=== PATIENT | male | born 1955 | race Caucasian/White ===

== ENCOUNTER 2021-03-14 18:56 | Inpatient (IN) | payer MEDICAID, SELFPAY ==
[2021-03-14] VITALS (9 sets, daily range): BP systolic 130–163; BP diastolic 80–103; PULSE 98–120; RESP 25–43; TEMP 37.3–39.1; O2SAT 90–97; BMI 23.1; BMI 23.3
--- NOTE | 2021-03-14 19:13 | EX.ED.DYSGE1 ---
HPI History of Present Illness Chief Complaint: Shortness of Breath Informant: EMS Narrative Narrative: 65-year-old male coming from home coming in by EMS with a chief complaint of fever and shaking. Patient states he has been sick for 4 days. When asked what symptoms he has been having he states I do not know. Nursing notes that he appears mottled. EMS noted that he was in the low 80s on room air at home. He can tell me that he lives with his but other than that he can provide no information PFSH PFSH Medical History Non-smoker Medical History unable to obtain unable to obtain Home Medications NK 03/14/21 [History Last Taken Unknown] Allergy/AdvReac Type Severity Reaction Status Date / Time No Known Allergies Allergy Verified 03/14/21 18:59 Surgical History unable to obtain unable to obtain Social History Smoking Status: Former smoker ROS ROS ED Review of Systems ROS Unobtainable: due to mental status EXAM Physical Exam Const Vital Signs: 03/14/21 19:00 03/14/21 19:06 03/14/21 19:10 Temperature 102.3 F H 102.3 F H Temperature Source Axillary Axillary Pulse Rate 120 H 120 H 120 H Respiratory Rate 26 H 35 H 35 H Respiratory Effort Short of Breath Respiratory Depth Shallow Respiratory Pattern Irregular Blood Pressure 136/103 H 136/103 H 136/103 H Blood Pressure Mean 114 114 114 Pulse Ox 95 95 95 Oxygen Delivery Method Non-Rebreather Non-Rebreather Non-Rebreather Oxygen Flow Rate (L/min) 15 03/14/21 19:52 03/14/21 20:00 03/14/21 20:06 Temperature 102.3 F H Temperature Source Axillary Pulse Rate 115 H 115 H Respiratory Rate 25 H 25 H Respiratory Effort Respiratory Depth Respiratory Pattern Blood Pressure 146/91 H 146/91 H Blood Pressure Mean 109 109 Pulse Ox 94 94 94 Oxygen Delivery Method Non-Rebreather Non-Rebreather Non-Rebreather Oxygen Flow Rate (L/min) 15 15 15 03/14/21 21:28 Temperature Temperature Source Pulse Rate 106 H Respiratory Rate 32 H Respiratory Effort Respiratory Depth Respiratory Pattern Blood Pressure 163/95 H Blood Pressure Mean 117 Pulse Ox 97 Oxygen Delivery Method Non-Rebreather Oxygen Flow Rate (L/min) 15 Positive well nourished and well developed General Appearance ED: well developed HEENT Reports normocephalic, head/scalp atraumatic, TM's clear and moist mucous membranes Negative for trauma Tympanic Membrane ED: Yes TM's clear Eyes PERRL and EOMs intact bilaterally Neck no lymphadenopathy, supple and no JVD Resp normal respiratory effort and clear to auscultation bilaterally Cardio regular rate and no murmurs Rate: tachycardic GI normal to inspection, nondistended, normoactive bowel sounds and non-tender Palpation: soft Back/Spine no CVA tenderness and normal ROM Extremity normal to inspection General Extremety ED: Negative for edema General Extremity: Negative for edema Neuro CN's II-XII intact bilaterally Sensorium / Orientation: alert Motor Exam: strength 5/5 throughout Psych Mood & Affect: depressed and tearful Skin no wounds Skin Narrative: Skin appears mottled MDM MDM MDM Narrative Medical decision making narrative: White count 6.4. Fibrinogen greater than 900 D-dimer 4.51. C-reactive protein 110 troponin I 20. LDH 691. Creatinine 1.77 with a BUN of 32. Lactic acid is 3.4. My interpretation of the chest x-ray is bilateral infiltrates. His rapid Covid was negative but his labs and his presentation and his CTA of his chest is very consistent with COVID-19. Patient is currently on a nonrebreather mask and we will be transitioning to air Vo when he goes to the floor. The patient will also receive a dose of Decadron. He wishes to speak with his regarding CODE STATUS before deciding on that. Lab Data Attestation: I reviewed the patient's lab results. Labs: Laboratory Results - last 24 hr 03/14/21 03/14/21 03/14/21 19:16 19:16 19:16 WBC 6.4 RBC 5.69 Hgb 16.9 H Hct 53.5 MCV 94.0 MCH 29.7 MCHC 31.6 L RDW Std Deviation 45.7 H RDW Coeff of Nito 13.2 Plt Count 399 MPV 11.0 Immature Gran % (Auto) 1.100 H Neut % (Auto) 77.8 H Lymph % (Auto) 18.6 L Cowley % (Auto) 2.2 Eos % (Auto) 0.0 Baso % (Auto) 0.3 Absolute Neuts (auto) 4.9 Absolute Lymphs (auto) 1.18 Nucleated RBC % 0 Differential Comment SCANNED Fibrinogen > 900 H D-Dimer Quant (PE/DVT) 4.51 H* Sodium 143 Potassium 3.9 Chloride 103 Carbon Dioxide 30.0 Anion Gap 10 BUN 32 H Creatinine 1.77 H Estim Creat Clear Calc 39.94 Est GFR (MDRD) Af Amer 50 L Est GFR (MDRD) Non-Af 41 L BUN/Creatinine Ratio 18.1 Glucose 140 H Lactic Acid Calcium 9.5 Total Bilirubin 0.80 AST 58 H ALT 55 Alkaline Phosphatase 53 Lactate Dehydrogenase 691 H Total Creatine Kinase 200 Troponin I High Sens 120 H C-React Prot Ext Range 110.00 H B-Natriuretic Peptide Total Protein 8.8 H Albumin 2.3 L Globulin 6.5 H Albumin/Globulin Ratio 0.4 L Procalcitonin 03/14/21 03/14/21 03/14/21 19:16 19:16 19:16 WBC RBC Hgb Hct MCV MCH MCHC RDW Std Deviation RDW Coeff of Nito Plt Count MPV Immature Gran % (Auto) Neut % (Auto) Lymph % (Auto) Cowley % (Auto) Eos % (Auto) Baso % (Auto) Absolute Neuts (auto) Absolute Lymphs (auto) Nucleated RBC % Differential Comment Fibrinogen D-Dimer Quant (PE/DVT) Sodium Potassium Chloride Carbon Dioxide Anion Gap BUN Creatinine Estim Creat Clear Calc Est GFR (MDRD) Af Amer Est GFR (MDRD) Non-Af BUN/Creatinine Ratio Glucose Lactic Acid 3.4 H* Calcium Total Bilirubin AST ALT Alkaline Phosphatase Lactate Dehydrogenase Total Creatine Kinase Troponin I High Sens C-React Prot Ext Range B-Natriuretic Peptide 57.8 Total Protein Albumin Globulin Albumin/Globulin Ratio Procalcitonin 0.40 H Radiography Diagnostic Testing: Clinical Impression(s) from Imaging Studies Chest X-Ray 03/14/21 20:10 IMPRESSION: Bilateral pneumonia. Electronically Signed: Mihai Ross MD at 20:30 EST , Service support , Chest CTA 03/14/21 20:27 IMPRESSION: 1. No demonstrated pulmonary embolism or arterial dissection. 2. There is bilateral pneumonia. 3. There are compression deformities of the spine. These are age-indeterminate. MRI could further evaluate if of concern. 4. Gallstones. Electronically Signed: Mihai Ross MD at 21:40 EST , Service support , EKG Initial EKG: Attestation: I personally reviewed and interpreted this EKG as follows: Comments: Sinus tachycardia with a ventricular rate of 110 bpm. P PVC noted Discharge Plan Dx/Rx/DC Orders Clinical Impression: COVID-19, Acute hypoxemic respiratory failure due to COVID-19 Disposition Disposition: Acute Care Hospital [facility]
--- NOTE | 2021-03-14 19:50 | EKG12_ITS ---
Test Reason : SOB Blood Pressure : / mmHG Vent. Rate : 112 BPM Atrial Rate : 112 BPM P-R Int : 124 ms QRS Dur : 078 ms QT Int : 330 ms P-R-T Axes : 048 034 030 degrees QTc Int : 450 ms Sinus tachycardia with occasional Premature ventricular complexes Septal infarct , age undetermined Abnormal ECG Confirmed by RENE BROOKS, BRITTANIE ([id number]), photography editor VALERIE ROMAN ([id number]) on 03/17/2021 9:52:38 AM Referred By: Confirmed By:BRITTANIE LÓPEZ MD
[2021-03-14 20:01] LABS: Absolute Lymphocyte Count 1.18 X10^3/uL (0.83-4.51); Absolute Neutrophil Count 4.9 X10^3/uL (2.0-7.7); Basophil# 0.02 X10^3/uL; Basophil% 0.3 % (0-1); Hematocrit 53.5 % (40-54); Hemoglobin 16.9 g/dL (13.0-16.5); Lymphocyte # 1.18 X10^3/ul (0.83-4.51); Lymphocyte % 18.6 % (19-41); Mean Corp Hgb Conc 31.6 g/dL (32-36); Mean Corpuscular Hgb 29.7 pg (27.0-32.0); Monocyte# 0.14 X10^3/uL; Monocyte% 2.2 % (0-10); NRBC Flagged by Analyzer 0 % (0-5); Neutrophil # 4.94 X10^3/uL (2.7-7.7); Neutrophil % 77.8 % (47-70); POSITIVE MORPHOLOGY YES; Platelet Count 399 K/mm3 (150-450); RBC Distribution Width CV 13.2 % (11.6-14.6); RBC Distribution Width SD 45.7 fl (35.1-43.9); Red Blood Count 5.69 M/mm3 (4.6-6.2); White Blood Count 6.4 K/mm3 (4.4-11.0)
--- NOTE | 2021-03-14 20:10 | RAD_ITS ---
STUDY: X-RAY CHEST REASON FOR EXAM: Male, 65 years old. CHEST PAIN coughTechnologist Notes SEVERE SOB. FEVER. BEST IMAGE POSSIBLE DUE TO PATIENT AND CONDITION. TECHNIQUE: XR Chest 1 View COMPARISON: None FINDINGS: There is no demonstrated pleural abnormality. There is bilateral infiltrate. Normal size heart. Normal mediastinum and xochilt. Normal visualized pulmonary arteries. There is atherosclerotic calcification of the aortic arch with tortuosity. There are diffuse degenerative changes of the visualized thoracic spine. There is degenerative osteoarthritis of the bilateral shoulders. There is no demonstrated abnormality of the visualized soft tissue structures of the upper abdomen. RAD/Chest 1 View (Portable) IMPRESSION: Bilateral pneumonia. Electronically Signed: Mihai Ross MD at 20:30 EST , Service support ,
[2021-03-14 20:15] LABS: Differential Indicated SCAN CRITERIA MET
[2021-03-14 20:21] LABS: ALB/GLOB Ratio 0.4 RATIO (0.9-2.4); AST(SGOT) 58 U/L (15-37); Alanine Aminotransfer ALT/SGPT 55 U/L (16-61); Albumin, Serum 2.3 g/dL (3.2-5.0); Alkaline Phosphatase 53 U/L (45-117); Anion Gap 10 (5-15); BUN 32 mg/dL (7-18); BUN/Creat Ratio 18.1 RATIO (10-20); CPK Total, Creatine Kinase 200 U/L (39-308); Calcium,Total 9.5 mg/dL (8.5-10.1); Chloride 103 mmol/L (98-107); Creatinine, Serum 1.77 mg/dL (0.70-1.30); EST Glomerular Filtration Rate 41 mL/min (>60); Est Glom Filt Rate - Afr Amer 50 mL/min (>60); Estimated Creatinine Clearance 39.94 ml/min; Globulin 6.5 g/dL (2.2-4.2); Glucose 140 mg/dL (74-106); LDH 691 U/L (87-241); Potassium 3.9 mmol/L (3.5-5.1); Protein, Total 8.8 g/dL (6.4-8.2); Sodium Level 143 mmol/L (136-145); Troponin-I HS 120 pg/mL (3.0-78.0)
[2021-03-14 20:24] LABS: Lactic Acid 3.4 mmol/L (0.4-1.9)
--- NOTE | 2021-03-14 20:27 | CT_ITS ---
EXAM: CT ANGIOGRAPHY CHEST WITHOUT AND WITH INTRAVENOUS CONTRAST CLINICAL INDICATION: pulmonary embolism TECHNIQUE: Helically acquired angiography images were obtained of the chest without and with intravenous contrast. This CT exam was performed using one or more of the following dose reduction techniques: automated exposure control, adjustment of the mA and/or kV according to patient size, and/or use of iterative reconstruction technique. This report was created using [employer] report generation technology. MIP reconstructed images were created and reviewed. CONTRAST: IV 100mL [id number] COMPARISON: None. FINDINGS: PULMONARY ARTERIES: No demonstrated pulmonary embolism or arterial dissection. AORTA: There is atherosclerotic calcification of the aortic arch with tortuosity and elongation of the aortic arch and descending thoracic aorta. Normal in caliber. No evidence of dissection. GREAT VESSELS OF AORTIC ARCH: Unremarkable. Normal in caliber. No evidence of dissection. LUNGS AND PLEURAL SPACES: There is bilateral pneumonia. No mass. No pleural effusion or thickening. HEART: There are calcifications of the coronary arteries. No pericardial effusion. No signs of right heart strain, ratio of right ventricle to left ventricle measures less than 1. MEDIASTINUM: There is a hiatal hernia. No mediastinal or hilar adenopathy. Esophagus is unremarkable. THYROID: Unremarkable. No thyroid lesions. BONES/JOINTS: There are degenerative findings of the thoracic spine. Age indeterminate compression deformity of the superior thoracic spine. No suspicious lytic or blastic abnormality. GALLBLADDER AND BILE DUCTS: Gallstones. CT/CTA Chest W/WO Contrast IMPRESSION: 1. No demonstrated pulmonary embolism or arterial dissection. 2. There is bilateral pneumonia. 3. There are compression deformities of the spine. These are age-indeterminate. MRI could further evaluate if of concern. 4. Gallstones. Electronically Signed: Mihai Ross MD at 21:40 EST , Service support ,
[2021-03-14] MEDS: Acetaminophen 500 MG Tablet 1000 MG PO (20:34)
[2021-03-14 20:37] LABS: Fibrinogen > 900 mg/dl (203-444)
[2021-03-14 20:48] LABS: Differential Comment SCANNED
[2021-03-14 20:51] LABS: D-Dimer Quantitative (DVT/PE) 4.51 FEU/ug/m (0.27-0.49)
[2021-03-14 20:59] LABS: BNP,B-Type NATRIURETIC PEPTIDE 57.8 pg/mL (0-100)
--- NOTE | 2021-03-14 22:07 | PCM.HP.STD ---
HPI - General General Date of Admission: 03/14/21 HPI Narrative Patient is not forthcoming with information.Patient wanted to go home. However his does not want him to go back home since patient is sick. EMMY SERVIN, is a 65 M who denies any medical history and who presents to the emergency department with shortness of breath. He reported his shortness of breath started about a week. He denies a cough, fever, chills, nausea, vomiting and diarrhea. Indeed patient denies any other symptoms except to say that he has shortness of breath. [facility] Medical History Non-smoker Medical History unable to obtain Home Medications NK 03/14/21 [History Last Taken Unknown] Allergy/AdvReac Type Severity Reaction Status Date / Time No Known Allergies Allergy Verified 03/14/21 18:59 Family History Other Heart disease Surgical History no surgical history no surgical history Social History Smoking Status: Former smoker ROS ROS Narrative Pertinent positives and pertinent negatives as noted in HPI. All other systems were reviewed and are negative. Vital Signs Vital Signs Vital Signs: 03/14/21 19:00 03/14/21 19:06 03/14/21 19:10 Temperature 102.3 F H 102.3 F H Temperature Source Axillary Axillary Pulse Rate 120 H 120 H 120 H Respiratory Rate 26 H 35 H 35 H Respiratory Effort Short of Breath Respiratory Depth Shallow Respiratory Pattern Irregular Blood Pressure 136/103 H 136/103 H 136/103 H Blood Pressure Mean 114 114 114 Pulse Ox 95 95 95 Oxygen Delivery Method Non-Rebreather Non-Rebreather Non-Rebreather Oxygen Flow Rate (L/min) 15 03/14/21 19:52 03/14/21 20:00 03/14/21 20:06 Temperature 102.3 F H Temperature Source Axillary Pulse Rate 115 H 115 H Respiratory Rate 25 H 25 H Respiratory Effort Respiratory Depth Respiratory Pattern Blood Pressure 146/91 H 146/91 H Blood Pressure Mean 109 109 Pulse Ox 94 94 94 Oxygen Delivery Method Non-Rebreather Non-Rebreather Non-Rebreather Oxygen Flow Rate (L/min) 15 15 15 03/14/21 21:28 Temperature Temperature Source Pulse Rate 106 H Respiratory Rate 32 H Respiratory Effort Respiratory Depth Respiratory Pattern Blood Pressure 163/95 H Blood Pressure Mean 117 Pulse Ox 97 Oxygen Delivery Method Non-Rebreather Oxygen Flow Rate (L/min) 15 Weight Weight: 67.132 kg Body Mass Index (BMI) 23.1 Physical Exam Narrative Physical exam: General: Well-nourished, well-developed. Head: Normocephalic, atraumatic, no tenderness Eyes: PERRLA, EOMI ENT, no trauma, no rhinorrhea Neck: Nontender, full range of motion, no spinal tenderness, deformities, step-off CVS: Tachycardia . S1-S2 present. No murmur, gallop or rub. Respiratory : Tachypnea , chest wall nontender, no wheezing Abdomen: Soft, nontender, nondistended, normal bowel sounds, no masses : Deferred Back: Nontender, no CVA tenderness, no midline spinal tenderness, deformities, step-offs Extremities: Nontender full range of motion, no trauma Skin: Normal color, no trauma, abrasions Neuro: Alert, oriented, cranial nerves II through XII grossly intact. Psychiatry: Normal mood. Normal affect. Not depressed. Not anxious. Results Lab / Micro Data Result Diagrams: 03/14/21 19:16 03/14/21 19:16 Labs: Laboratory Results - last 24 hr 03/14/21 19:16: WBC 6.4, RBC 5.69, Hgb 16.9 H, Hct 53.5, MCV 94.0, MCH 29.7, MCHC 31.6 L, RDW Std Deviation 45.7 H, RDW Coeff of Nito 13.2, Plt Count 399, MPV 11.0, Immature Gran % (Auto) 1.100 H, Neut % (Auto) 77.8 H, Lymph % (Auto) 18.6 L, Blair % (Auto) 2.2, Eos % (Auto) 0.0, Baso % (Auto) 0.3, Absolute Neuts (auto) 4.9, Absolute Lymphs (auto) 1.18, Nucleated RBC % 0, Differential Comment SCANNED 03/14/21 19:16: Fibrinogen > 900 H, D-Dimer Quant (PE/DVT) 4.51 H* 03/14/21 19:16: Sodium 143, Potassium 3.9, Chloride 103, Carbon Dioxide 30.0, Anion Gap 10, BUN 32 H, Creatinine 1.77 H, Estim Creat Clear Calc 39.94, Est GFR (MDRD) Af Amer 50 L, Est GFR (MDRD) Non-Af 41 L, BUN/Creatinine Ratio 18.1, Glucose 140 H, Calcium 9.5, Total Bilirubin 0.80, AST 58 H, ALT 55, Alkaline Phosphatase 53, Lactate Dehydrogenase 691 H, Total Creatine Kinase 200, Troponin I High Sens 120 H, C-React Prot Ext Range 110.00 H, Total Protein 8.8 H, Albumin 2.3 L, Globulin 6.5 H, Albumin/Globulin Ratio 0.4 L 03/14/21 19:16: Lactic Acid 3.4 H* 03/14/21 19:16: B-Natriuretic Peptide 57.8 03/14/21 19:16: Procalcitonin 0.40 H Micro: Microbiology 03/14/21 20:10 Mucosa - Nose Influenza Types A,B Direct FA (RAMONITA) - Final 03/14/21 19:49 Nasal Secretion SARS-CoV-2 Antigen (Rapid) - Final Radiology Impression Chest X-Ray 03/14/21 20:10 IMPRESSION: Bilateral pneumonia. Electronically Signed: Mihai Ross MD at 20:30 EST , Service support , Chest CTA 03/14/21 20:27 IMPRESSION: 1. No demonstrated pulmonary embolism or arterial dissection. 2. There is bilateral pneumonia. 3. There are compression deformities of the spine. These are age-indeterminate. MRI could further evaluate if of concern. 4. Gallstones. Electronically Signed: Mihai Ross MD at 21:40 EST , Service support , Assessment & Plan Assessment/Plan (1) Respiratory failure: QUALIFIERS: Chronicity: acute Respiratory failure complication: hypoxia Qualified Code(s): J96.01 - Acute respiratory failure with hypoxia PLAN: Acute hypoxemic respiratory failure Patient with tachycardia; tachypnea; and requiring nonrebreather mask and airvo Chest x-ray interpreted by myself showed bilateral opacities and agree radiologist interpretation. Chest CTA with bilateral opacities and if no pulmonary embolism or acute dissection. Labs reviewed showed normal white counts but with bandemia of 1.1%; neutrophilia of 77.8% and lymphopenia of 18.6%. Lactic acid 3.4 likely from hypoxemia, trend. At the time of history taking patient was saying no to every question. He does not really want to be at the hospital except that his think that he should be at the hospital. Review of emergent department notes showed that patient has also had fever and shaking. Reportedly he was mottled at the ED and his oxygen saturation was in the low 80s on room air at home. Reportedly with given oxygen at the ED his color improved. Required nonrebreather mask at emergency department and then placed on airvo at the [facility]. Initial rapid antigen was negative. ED doctor ordered PCR Covid that also returned negative. Started on Decadron at emergency department and continued. Procalcitonin returned at 0.40 which is indeterminate for bacterial infection. Will start patient on ceftriaxone and azithromycin. We will get a strep pneumonia antigen, Legionella urine antigen and mycoplasma antibodies. Denies any cough to get sputum culture. We will get blood cultures. Will start patient ceftriaxone and azithromycin. Influenza screen was negative. Will check RSV. Will consult stress analyst. Elevated creatinine and elevated BUN Creatinine on presentation was 1.77. BUN on presentation was 32. BUN over creatinine is 18.1. No previous BMP in hospital system or in the community system to compare with. Cautious use of IV fluids in the setting of pulmonary disease. Gentle IV hydration 50 mL/h ordered. Urine electrolytes ordered. Trend CMP DVT prophylaxis: Subcutaneous Lovenox ordered. Charges/Coding Visit Charges Inpatient E&M: 56337 Init Hosp L3
[2021-03-14] MEDS: dexAMETHasone 4 MG Tablet 6 MG PO (22:20)
[2021-03-14 23:57] LABS: Reflex Lactate? Y
[2021-03-15] VITALS (25 sets, daily range): BP systolic 118–158; BP diastolic 71–108; PULSE 80–113; RESP 18–36; TEMP 35.3–36.2; O2SAT 92–99
--- NOTE | 2021-03-15 00:01 | PCS.PANDOC ---
PANDEMIC DOCUMENTATION INITIATED: Date: 10/24/2020 Time: 190
[2021-03-15 01:02] LABS: Lactic Acid 2.1 mmol/L (0.4-1.9)
[2021-03-15 02:13] LABS: Absolute Lymphocyte Count 0.45 X10^3/uL (0.83-4.51); Absolute Neutrophil Count 5.9 X10^3/uL (2.0-7.7); Basophil# 0.01 X10^3/uL; Basophil% 0.2 % (0-1); Hematocrit 47.8 % (40-54); Hemoglobin 15.5 g/dL (13.0-16.5); Lymphocyte # 0.45 X10^3/ul (0.83-4.51); Lymphocyte % 6.9 % (19-41); Mean Corp Hgb Conc 32.4 g/dL (32-36); Mean Corpuscular Hgb 30.6 pg (27.0-32.0); Mean Corpuscular Volume 94.3 fL (80-94); Mean Platelet Vol. 10.1 fl (6.2-12.0); Monocyte# 0.11 X10^3/uL; Monocyte% 1.7 % (0-10); NRBC Flagged by Analyzer 0 % (0-5); Neutrophil # 5.92 X10^3/uL (2.7-7.7); Neutrophil % 90.3 % (47-70); POSITIVE DIFFERENTIAL YES; Platelet Count 387 K/mm3 (150-450); RBC Distribution Width CV 13.2 % (11.6-14.6); RBC Distribution Width SD 45.8 fl (35.1-43.9); Red Blood Count 5.07 M/mm3 (4.6-6.2); White Blood Count 6.6 K/mm3 (4.4-11.0)
[2021-03-15] MEDS: 0.9% Normal Saline 1,000 ML 50 ML IV ×2 (02:16→11:01)
[2021-03-15] MEDS: Ceftriaxone 1 GM/50 ML BAG IV ×2 (02:16→23:18)
[2021-03-15 02:22] LABS: Differential Indicated SCAN CRITERIA MET
[2021-03-15 02:48] LABS: ALB/GLOB Ratio 0.4 RATIO (0.9-2.4); AST(SGOT) 44 U/L (15-37); Alanine Aminotransfer ALT/SGPT 46 U/L (16-61); Alkaline Phosphatase 50 U/L (45-117); Anion Gap 12 (5-15); BUN 32 mg/dL (7-18); BUN/Creat Ratio 20.9 RATIO (10-20); Calcium,Total 8.7 mg/dL (8.5-10.1); Chloride 107 mmol/L (98-107); Creatinine, Serum 1.53 mg/dL (0.70-1.30); EST Glomerular Filtration Rate 49 mL/min (>60); Est Glom Filt Rate - Afr Amer 59 mL/min (>60); Globulin 5.7 g/dL (2.2-4.2); Glucose 290 mg/dL (74-106); Potassium 3.3 mmol/L (3.5-5.1); Protein, Total 7.7 g/dL (6.4-8.2); Sodium Level 142 mmol/L (136-145)
[2021-03-15 02:50] LABS: Urine Sodium 13 mmol/L (Not Establ.)
[2021-03-15 02:51] LABS: Differential Comment SCANNED
[2021-03-15 04:01] LABS: Erythrocyte Sedimentation Rate 102 mm/hr (0-20)
[2021-03-15] MEDS: Potassium Chloride 10mEq/100mL 10 MEQ/100 ML IV.SOLN. 100 MEQ IV BOLUS ×4 (04:33→08:08)
[2021-03-15 04:44] LABS: Magnesium 3.4 mg/dL (1.6-2.6)
--- NOTE | 2021-03-15 04:48 | NURSING ---
Okay per pt to give updates to sister Crista.
[2021-03-15 05:40] LABS: Osmolality, Urine 822 mOsm/KG
[2021-03-15] MEDS: Enoxaparin 30 MG/0.3 ML Syringe SC ×2 (08:11→23:17)
[2021-03-15] MEDS: dexAMETHasone 4 MG Tablet 6 MG PO (08:11)
--- NOTE | 2021-03-15 10:45 | CASEMGMT ---
DIVYA PENNY assessment: Face to Face with patient for initial transition planning/care coordination assessment. DIVYA PENNY introduced self and role at [facility], pt voices understanding and consents to assessment. Pt is sitting up in bed on airvo in no distress. Pt is A/Ox4 and answers all questions appropriately. Pt states is not vaccinated and states previously had symptoms but no longer is symptomatic. Pt states no concerns getting resources/groceries. Care providers, pharmacy, and demographics verified. Presentation: Pt c/o severe SOB/fever Admitting dx: Acute hypoxemic resp failure PCP: Pt states does not currently have a [id number] list provided Specialists: None currently Preferred Pharmacy: [facility] Insurance: [employer] community plan Prescription Benefit: [employer] community plan Living Will/HPOA: Pt states does not have LW/HPOA but would like AD info. AD info provided. LNOK: Lesli Massey, bg Living Arrangements: Pt lives with in 2 story home with basement and states no concerns at home. Pt is independent with ADL's. Transportation: Pt states that he and his walk everywhere they need to go and states no concerns. DME/HHC: Pt has a cane at home and states no need for any further DME. Pt states no preference for DME company, if qualifies for home oxygen at discharge. Pt states no hx of HHC or SNF. Pt states no concerns with going home at time of discharge. Pt is retired. Pt states does not smoke cigarettes but does drink 1-2 beers every other day. Pt states no further concerns/needs. CM to follow for any further discharge planning/needs. Advised pt to ask for CM if any further questions/concerns/needs arise, voices understanding. Pt Goal: Home Plan: [place] DIVYA PENNY
--- NOTE | 2021-03-15 16:10 | PCM.PN.HOSP ---
Subjective Subjective Patient states that he has been ill for a little over 2 weeks now. He never tested positive for Covid although he has had issues during the entire span. He has not been vaccinated and states he would not like to do so. He was initiated on Decadron his CAT scan findings are concerning for an atypical or viral pneumonia. He unfortunately has been requiring increased amount of oxygen and overnight was converted from 15 L to air Vo. Objective Data Objective Data Vital Signs: Vital Signs Temp Pulse Resp BP Pulse Ox 97.2 F L 104 H 22 H 143/95 H 94 03/15/21 16:04 03/15/21 16:04 03/15/21 16:04 03/15/21 16:04 03/15/21 16:04 Oxygen Flow Rate (L/min) 55 Oxygen Delivery Method Airvo Weight: 65.5 kg Body Mass Index (BMI) 23.3 Intake & Output: Intake and Output for Last 24 Hours 03/13/21 03/14/21 03/15/21 23:59 23:59 23:59 Intake Total 500 / 500 2596.67 / 2596.67 Output Total 900 / 900 Balance 500 / 500 1696.67 / 1696.67 Lab / Micro Data Result Diagrams: 03/15/21 01:45 03/15/21 01:45 Labs: Laboratory Results - last 24 hr 03/14/21 19:16: WBC 6.4, RBC 5.69, Hgb 16.9 H, Hct 53.5, MCV 94.0, MCH 29.7, MCHC 31.6 L, RDW Std Deviation 45.7 H, RDW Coeff of Nito 13.2, Plt Count 399, MPV 11.0, Immature Gran % (Auto) 1.100 H, Neut % (Auto) 77.8 H, Lymph % (Auto) 18.6 L, Brantley % (Auto) 2.2, Eos % (Auto) 0.0, Baso % (Auto) 0.3, Absolute Neuts (auto) 4.9, Absolute Lymphs (auto) 1.18, Nucleated RBC % 0, Differential Comment SCANNED 03/14/21 19:16: Fibrinogen > 900 H, D-Dimer Quant (PE/DVT) 4.51 H* 03/14/21 19:16: Sodium 143, Potassium 3.9, Chloride 103, Carbon Dioxide 30.0, Anion Gap 10, BUN 32 H, Creatinine 1.77 H, Estim Creat Clear Calc 39.94, Est GFR (MDRD) Af Amer 50 L, Est GFR (MDRD) Non-Af 41 L, BUN/Creatinine Ratio 18.1, Glucose 140 H, Calcium 9.5, Total Bilirubin 0.80, AST 58 H, ALT 55, Alkaline Phosphatase 53, Lactate Dehydrogenase 691 H, Total Creatine Kinase 200, Troponin I High Sens 120 H, C-React Prot Ext Range 110.00 H, Total Protein 8.8 H, Albumin 2.3 L, Globulin 6.5 H, Albumin/Globulin Ratio 0.4 L 03/14/21 19:16: Lactic Acid 3.4 H* 03/14/21 19:16: B-Natriuretic Peptide 57.8 03/14/21 19:16: Procalcitonin 0.40 H 03/14/21 19:16: C-React Prot Ext Range 107.00 H 03/14/21 21:26: COVID-19 (VASILE) Not Detected 03/15/21 00:26: Lactic Acid 2.1 H* 03/15/21 01:41: Magnesium 3.4 H 03/15/21 01:45: ESR 102 H 03/15/21 01:45: WBC 6.6, RBC 5.07, Hgb 15.5, Hct 47.8, MCV 94.3 H, MCH 30.6, MCHC 32.4, RDW Std Deviation 45.8 H, RDW Coeff of Nito 13.2, Plt Count 387, MPV 10.1, Immature Gran % (Auto) 0.900, Neut % (Auto) 90.3 H, Lymph % (Auto) 6.9 L, Brantley % (Auto) 1.7, Eos % (Auto) 0.0, Baso % (Auto) 0.2, Absolute Neuts (auto) 5.9, Absolute Lymphs (auto) 0.45 L, Nucleated RBC % 0, Differential Comment SCANNED 03/15/21 01:45: Sodium 142, Potassium 3.3 L, Chloride 107, Carbon Dioxide 23.0, Anion Gap 12, BUN 32 H, Creatinine 1.53 H, Estim Creat Clear Calc 44.60, Est GFR (MDRD) Af Amer 59 L, Est GFR (MDRD) Non-Af 49 L, BUN/Creatinine Ratio 20.9 H, Glucose 290 H, Calcium 8.7, Total Bilirubin 0.80, AST 44 H, ALT 46, Alkaline Phosphatase 50, Total Protein 7.7, Albumin 2.0 L, Globulin 5.7 H, Albumin/Globulin Ratio 0.4 L 03/15/21 02:30: Urine Osmolality 822, Ur Random Sodium 13, Urine Creatinine 161.00 Micro: Microbiology 03/15/21 02:30 Urine, Clean Catch Legionella Antigen - Final 03/15/21 02:30 Urine, Clean Catch Streptococcus pneumoniae Antigen (M - Final 03/15/21 02:46 Mucosa - Nasopharyngeal Rapid RSV (DFA) - Final 03/14/21 20:10 Mucosa - Nose Influenza Types A,B Direct FA (RAMONITA) - Final 03/14/21 19:49 Nasal Secretion SARS-CoV-2 Antigen (Rapid) - Final Radiography Diagnostic Testing: Radiology Impression Chest X-Ray 03/14/21 20:10 IMPRESSION: Bilateral pneumonia. Electronically Signed: Mihai Ross MD at 20:30 EST , Service support , Chest CTA 03/14/21 20:27 IMPRESSION: 1. No demonstrated pulmonary embolism or arterial dissection. 2. There is bilateral pneumonia. 3. There are compression deformities of the spine. These are age-indeterminate. MRI could further evaluate if of concern. 4. Gallstones. Electronically Signed: Mihai Ross MD at 21:40 EST , Service support , Physical Exam Const alert and oriented x3 Constitutional Narrative: Ill but nontoxic-appearing upper middle-aged white male who appears older than stated age, sitting up in bed watching television, currently on air Vo, no significant dyspnea with conversation Exam Limitations: no limitations HEENT head/scalp atraumatic, moist oral mucous membranes and oropharynx normal HEENT Narrative: Dentition is fair, Mallampati is 2, no thrush Head and Scalp: normocephalic Eyes PERRL, EOMs intact bilaterally and conjunctivae normal Eyes Narrative: No scleral icterus Neck no lymphadenopathy, supple and no JVD Neck Narrative: Trachea midline, no thyroid enlargement Resp normal respiratory effort, no retractions, no use of accessory muscles and No clear to auscultation bilaterally Resp Narrative: Bilateral basilar crackles and clear but diminished apices Auscultation: crackles and rales; Negative for rhonchi or wheezes Cardio regular rhythm, S1 normal heart sound, S2 normal heart sound, no murmurs, no rub, no gallops, no clicks and no JVD Cardio Narrative: Mild tachycardia GI normal to inspection, nondistended, normoactive bowel sounds, soft to palpation, non-tender and non-distended Extremity no clubbing, cyanosis or edema Peripheral Pulses: Yes pulses 2+ throughout Skin no rashes or lesions noted, no wounds, skin turgor normal, no jaundice, no petechiae and no mottling Neuro oriented x3, moves all extremities, no focal motor deficits and no sensory deficits noted Neuro Narrative: Generalized weakness but no focal deficits Sensorium / Orientation: awake and alert Speech: speech normal Psych affect normal Assessment & Plan Assessment/Plan (1) Acute hypoxemic respiratory failure due to COVID-19: (2) Elevated d-dimer: (3) Hypokalemia: (4) CONNOR (acute kidney injury): (5) Lactic acidosis: (6) Elevated troponin I level: PLAN: Acute hypoxic respiratory failure -Etiology is undetermined at this time although CAT scan appears consistent with viral pneumonia -COVID-19 infection is highly suspected at this time -he has been symptomatic for over 14 days so it is therefore possible that he is negative with rapid and PCR testing -IgM and IgG antibodies are pending -Lab work is very suspicious for Covid infection as well with elevated fibrinogen/CRP/ESR/D-dimer/LDH -Continue supplemental oxygen -Patient is currently on air Vo at 55 L/min and an FiO2 of 73% with a pulse ox of 94 to 99% -Titrate as able/needed -Flu testing is negative -Blood cultures are pending -RSV is negative -Mycoplasma IgG and IgM is pending Strep pneumo and Legionella antigens are negative -Continue empiric antibiotics with ceftriaxone and azithromycin -Continue Decadron day 2 of 10 -Patient is out of the window for remdesivir -I-S and Acapella -Discontinue IV fluids -We will hold diuresis at this time given unknown baseline renal function -Consult infectious disease for baricitinib consideration -Pulmonary consult pending Elevated D-dimer -CTA chest negative for PE -Continue prophylactic dose Lovenox Hypokalemia -Oral potassium supplementation -Repeat BMP in a.m. -If remains low check magnesium level Elevated troponin -Mild elevation -Repeat troponin now -If remains elevated will obtain echocardiogram and further work-up -May be related to demand ischemia secondary to hypoxia Lactic acidosis -This is mild and improved -Suspect related to hypoxia CONNOR versus CKD -Baseline renal function is unknown -1.77 on presentation and currently 1.53 -Continue to monitor for stability but I do anticipate there is a chronic component to this Hyperglycemia -Markedly elevated blood sugars with a current glucose of 260 on fasting lab this morning -Add SSI and Accu-Cheks -Check hemoglobin A1c DVT prophylaxis -Continue Lovenox 30 mg twice daily CODE STATUS -DNR CCA with intubation as documented per discussion on admission Charges/Coding Visit Charges Inpatient E&M: 48946 Init Hosp L3
--- NOTE | 2021-03-15 16:28 | EX.PCM.CONCC ---
Assessment & Plan Assessment/Plan (1) Respiratory failure: QUALIFIERS: Chronicity: acute Respiratory failure complication: hypoxia Qualified Code(s): J96.01 - Acute respiratory failure with hypoxia (2) Lactic acidosis: (3) Elevated d-dimer: PLAN: RECOMMENDATIONS: 1. Continue Airvo. Wean supplemental oxygen as tolerated 2. Empiric antibiotics and Decadron 3. Consider intermittent diuretic therapy 4. Monitor for alcohol withdrawal and refeeding syndrome 5. Attempt to obtain old records to assess renal function 6. Cannot exclude the need for BiPAP rescue in the next 24 hours IMPRESSIONS: 1. Acute hypoxic respiratory failure Unclear etiology at this time. Patient was relatively belligerent when discussing COVID-19. Groundglass opacities are in a pattern consistent with COVID-19. However, other possible etiologies would include other atypical viral infections or congestive heart failure. Unfortunately, viral panels are not available at this time. Diuretics likely have to be avoided given patient's acute kidney injury. RSV was negative. Continue to wean supplemental oxygen as tolerated. Agree with Decadron therapy. Patient does have some emphysematous changes, but denied any smoking history to me. Patient did not have a PE to account for findings. CRP is significantly elevated. Patient is not reporting any medications, but immunotherapy can make a similar type of presentation on CT of the chest. 2. Acute versus chronic kidney disease Baseline creatinine is not available at this time. Patient was elevated at 1.77 on presentation and this has improved with supportive therapy. However, it is unclear if there is a chronic component. Patient appears to be relatively adverse to medical evaluation. 3. Hyperglycemia Clinical suspicion for undiagnosed diabetes mellitus as an etiology. Patient was appropriately placed on sliding scale and Accu-Cheks. Await hemoglobin A1c. 4. Poor historian/nonvaccinated status Complicates care, management, recovery and prognosis. Will attempt to obtain further information from family members if possible. HPI Consult Data Date of Consult: 03/15/21 HPI Narrative HPI Narrative: EMMY SERVIN is a 65 M, with past medical history listed below, who presents to [facility] on 03/14/2021 secondary to fever and shaking. Patient reportedly had been sick for weeks and presented because my told me to. EMS had noted that the patient was in the low 80s on room air so he was transferred to the ER for further evaluation. In the ER, patient was noted to be febrile at 102.3 ?F, tachycardic at 120 bpm and hypertensive. Patient was requiring a nonrebreather to maintain saturations. Laboratory work-up showed a white blood cell count of 6.4, hemoglobin of 16.9 and a platelet count of 399. D-dimer was elevated at 4.5, creatinine of 1.77 and a glucose of 140. Patient did have an elevated lactate dehydrogenase at 691 and a CRP at 110. Lactate was elevated at 3.4, but BNP was only 57.8. Procalcitonin was elevated. Chest x-ray was consistent with bilateral pneumonia. Of subsequent CTA of the chest showed no PE with bilateral pneumonia. The patient was then admitted to the PCU for further evaluation. Patient is a very poor historian. Patient had reported that he was having symptoms for several weeks of shortness of breath. Patient denied any cough, fever, chills, nausea or vomiting. Patient did state that he was having some shortness of breath. When asked about why he came to the hospital his only response was my made me come. When asked about COVID-19 and risks, patient stated that COVID-19 was not a real diagnosis. Patient also stated that he had not been vaccinated. Patient denies any history of lung issues in the past. Patient denied any smoking history. Patient did report that he drinks 2 beers per hour on a normal basis. Patient states that he tends to get a case of 30 beers every 2 to 3 days. Patient denies any history of issues with cessation of alcohol. Patient denies any illicit drug use. Patient is a very poor historian, but review of systems otherwise negative from a constitutional, HEENT, respiratory, cardiovascular, GI, genitourinary, musculoskeletal, skin, neurologic, psychiatric and hematologic system unless stated above. [facility] Medical History Non-smoker Medical History unable to obtain Home Medications NK 03/14/21 [History Last Taken Unknown] Allergy/AdvReac Type Severity Reaction Status Date / Time No Known Allergies Allergy Verified 03/14/21 18:59 Family History Other Heart disease Surgical History no surgical history Social History Smoking Status: Former smoker ROS ROS Narrative See HPI Physical Exam Const alert and oriented x3 Constitutional Narrative: On Airvo General Appearance: disheveled, ill appearing and appears older than stated age Exam Limitations: no limitations HEENT head/scalp atraumatic, moist oral mucous membranes and oropharynx normal Head and Scalp: normocephalic Eyes PERRL, EOMs intact bilaterally and conjunctivae normal Eyes Narrative: No scleral icterus Neck No nuchal rigidity, no lymphadenopathy, supple and no JVD General: trachea midline Chest inspection of chest normal Chest: abnormal inspection of the chest increased A-P diameter; Negative for crepitus Resp normal respiratory effort, no retractions, no use of accessory muscles and No clear to auscultation bilaterally Auscultation: rales and diminished lung sounds; Negative for rhonchi or wheezes Cardio regular rhythm, S1 normal heart sound, S2 normal heart sound, no murmurs, no rub, no gallops, no clicks and no JVD Cardio Narrative: Mild tachycardia GI normal to inspection, nondistended, normoactive bowel sounds, soft to palpation, non-tender and non-distended Extremity no clubbing, cyanosis or edema Peripheral Pulses: Yes pulses 2+ throughout Skin no rashes or lesions noted, no wounds, skin turgor normal, no jaundice, no petechiae and no mottling Neuro oriented x3, moves all extremities, no focal motor deficits and no sensory deficits noted Neuro Narrative: Generalized weakness but no focal deficits Sensorium / Orientation: awake and alert Speech: speech normal Psych affect normal Lab / Micro Data Result Diagrams: 03/15/21 01:45 03/15/21 01:45 Labs: Laboratory Results - last 24 hr 03/14/21 19:16: WBC 6.4, RBC 5.69, Hgb 16.9 H, Hct 53.5, MCV 94.0, MCH 29.7, MCHC 31.6 L, RDW Std Deviation 45.7 H, RDW Coeff of Nito 13.2, Plt Count 399, MPV 11.0, Immature Gran % (Auto) 1.100 H, Neut % (Auto) 77.8 H, Lymph % (Auto) 18.6 L, Barry % (Auto) 2.2, Eos % (Auto) 0.0, Baso % (Auto) 0.3, Absolute Neuts (auto) 4.9, Absolute Lymphs (auto) 1.18, Nucleated RBC % 0, Differential Comment SCANNED 03/14/21 19:16: Fibrinogen > 900 H, D-Dimer Quant (PE/DVT) 4.51 H* 03/14/21 19:16: Sodium 143, Potassium 3.9, Chloride 103, Carbon Dioxide 30.0, Anion Gap 10, BUN 32 H, Creatinine 1.77 H, Estim Creat Clear Calc 39.94, Est GFR (MDRD) Af Amer 50 L, Est GFR (MDRD) Non-Af 41 L, BUN/Creatinine Ratio 18.1, Glucose 140 H, Calcium 9.5, Total Bilirubin 0.80, AST 58 H, ALT 55, Alkaline Phosphatase 53, Lactate Dehydrogenase 691 H, Total Creatine Kinase 200, Troponin I High Sens 120 H, C-React Prot Ext Range 110.00 H, Total Protein 8.8 H, Albumin 2.3 L, Globulin 6.5 H, Albumin/Globulin Ratio 0.4 L 03/14/21 19:16: Lactic Acid 3.4 H* 03/14/21 19:16: B-Natriuretic Peptide 57.8 03/14/21 19:16: Procalcitonin 0.40 H 03/14/21 19:16: C-React Prot Ext Range 107.00 H 03/14/21 21:26: COVID-19 (VASILE) Not Detected 03/15/21 00:26: Lactic Acid 2.1 H* 03/15/21 01:41: Magnesium 3.4 H 03/15/21 01:45: ESR 102 H 03/15/21 01:45: WBC 6.6, RBC 5.07, Hgb 15.5, Hct 47.8, MCV 94.3 H, MCH 30.6, MCHC 32.4, RDW Std Deviation 45.8 H, RDW Coeff of Nito 13.2, Plt Count 387, MPV 10.1, Immature Gran % (Auto) 0.900, Neut % (Auto) 90.3 H, Lymph % (Auto) 6.9 L, Barry % (Auto) 1.7, Eos % (Auto) 0.0, Baso % (Auto) 0.2, Absolute Neuts (auto) 5.9, Absolute Lymphs (auto) 0.45 L, Nucleated RBC % 0, Differential Comment SCANNED 03/15/21 01:45: Sodium 142, Potassium 3.3 L, Chloride 107, Carbon Dioxide 23.0, Anion Gap 12, BUN 32 H, Creatinine 1.53 H, Estim Creat Clear Calc 44.60, Est GFR (MDRD) Af Amer 59 L, Est GFR (MDRD) Non-Af 49 L, BUN/Creatinine Ratio 20.9 H, Glucose 290 H, Calcium 8.7, Total Bilirubin 0.80, AST 44 H, ALT 46, Alkaline Phosphatase 50, Total Protein 7.7, Albumin 2.0 L, Globulin 5.7 H, Albumin/Globulin Ratio 0.4 L 03/15/21 02:30: Urine Osmolality 822, Ur Random Sodium 13, Urine Creatinine 161.00 Micro: Microbiology 03/15/21 02:30 Urine, Clean Catch Legionella Antigen - Final 03/15/21 02:30 Urine, Clean Catch Streptococcus pneumoniae Antigen (M - Final 03/15/21 02:46 Mucosa - Nasopharyngeal Rapid RSV (DFA) - Final 03/14/21 20:10 Mucosa - Nose Influenza Types A,B Direct FA (RAMONITA) - Final 03/14/21 19:49 Nasal Secretion SARS-CoV-2 Antigen (Rapid) - Final Radiology Impression Chest X-Ray 03/14/21 20:10 IMPRESSION: Bilateral pneumonia. Electronically Signed: Mihai Ross MD at 20:30 EST , Service support , Chest CTA 03/14/21 20:27 IMPRESSION: 1. No demonstrated pulmonary embolism or arterial dissection. 2. There is bilateral pneumonia. 3. There are compression deformities of the spine. These are age-indeterminate. MRI could further evaluate if of concern. 4. Gallstones. Electronically Signed: Mihai Ross MD at 21:40 EST , Service support , Charges/Coding Visit Charges Inpatient E&M: 85388 Init Hosp L3
[2021-03-15 17:45] LABS: Troponin-I HS 43 pg/mL (3.0-78.0)
[2021-03-15] MEDS: Acetaminophen 325 MG Tablet 650 MG PO (23:27)
[2021-03-16] VITALS (31 sets, daily range): BP systolic 106–156; BP diastolic 74–113; PULSE 77–118; RESP 10–40; TEMP 36.1–40.3; O2SAT 89–97
[2021-03-16 05:50] LABS: Absolute Lymphocyte Count 0.54 X10^3/uL (0.83-4.51); Absolute Neutrophil Count 7.7 X10^3/uL (2.0-7.7); Basophil# 0.01 X10^3/uL; Basophil% 0.1 % (0-1); Hematocrit 43.4 % (40-54); Hemoglobin 14.6 g/dL (13.0-16.5); Lymphocyte # 0.54 X10^3/ul (0.83-4.51); Lymphocyte % 6.4 % (19-41); Mean Corp Hgb Conc 33.6 g/dL (32-36); Mean Corpuscular Hgb 30.7 pg (27.0-32.0); Mean Corpuscular Volume 91.4 fL (80-94); Mean Platelet Vol. 10.2 fl (6.2-12.0); Monocyte# 0.14 X10^3/uL; Monocyte% 1.7 % (0-10); NRBC Flagged by Analyzer 0 % (0-5); Neutrophil # 7.67 X10^3/uL (2.7-7.7); Neutrophil % 91.1 % (47-70); POSITIVE DIFFERENTIAL YES; Platelet Count 357 K/mm3 (150-450); RBC Distribution Width CV 12.9 % (11.6-14.6); RBC Distribution Width SD 43.7 fl (35.1-43.9); Red Blood Count 4.75 M/mm3 (4.6-6.2); White Blood Count 8.4 K/mm3 (4.4-11.0)
[2021-03-16 05:55] LABS: Differential Indicated SCAN CRITERIA MET
[2021-03-16 06:18] LABS: ALB/GLOB Ratio 0.3 RATIO (0.9-2.4); AST(SGOT) 32 U/L (15-37); Alanine Aminotransfer ALT/SGPT 50 U/L (16-61); Albumin, Serum 1.7 g/dL (3.2-5.0); Alkaline Phosphatase 51 U/L (45-117); Anion Gap 11 (5-15); BUN 17 mg/dL (7-18); BUN/Creat Ratio 21.1 RATIO (10-20); Calcium,Total 8.4 mg/dL (8.5-10.1); Chloride 110 mmol/L (98-107); Creatinine, Serum 0.81 mg/dL (0.70-1.30); EST Glomerular Filtration Rate 103 mL/min (>60); Est Glom Filt Rate - Afr Amer 124 mL/min (>60); Estimated Creatinine Clearance 84.24 ml/min; Globulin 5.2 g/dL (2.2-4.2); Glucose 117 mg/dL (74-106); Potassium 3.5 mmol/L (3.5-5.1); Protein, Total 6.9 g/dL (6.4-8.2); Sodium Level 142 mmol/L (136-145)
[2021-03-16 06:40] LABS: Hemoglobin A1c 5.7 % (3.8-5.6)
[2021-03-16 06:57] LABS: Differential Comment SCANNED
[2021-03-16] MEDS: Acetaminophen 325 MG Tablet 650 MG PO (07:14)
[2021-03-16] MEDS: dexAMETHasone 4 MG Tablet 6 MG PO (08:48)
[2021-03-16] MEDS: Furosemide 40 MG/4 ML Vial IV ×2 (08:49→15:49)
[2021-03-16] MEDS: Enoxaparin 30 MG/0.3 ML Syringe SC ×2 (08:49→19:57)
[2021-03-16] MEDS: Potassium Chloride Oral Tablet 20 MEQ 40 MEQ PO (08:49)
--- NOTE | 2021-03-16 10:25 | CON.PCM.ID_ITS ---
Assessment & Plan Assessment/Plan (1) Respiratory failure: QUALIFIERS: Chronicity: acute Respiratory failure complication: hypoxia Qualified Code(s): J96.01 - Acute respiratory failure with hypoxia PLAN: Suspected covid based on symptoms, imaging, lymphopenia. PCR and Ag neg, Ab testing pending. On azithro/ceftriaxone/dex. Recommend vaccine after discharge. Sx started around 14 days ago, would plan on isolation for one more week. Will follow, thank you HPI Consult Data Date of Consult: 03/16/21 HPI Narrative HPI Narrative: EMMY SERVIN, is a 65 M M, heavy etoh use, unvaccinated for covid, presented 1/ with 2 weeks of fatigue, cough, not feeling well. also sick but recovering. Sent to ED with low sats. Covid Ag and PCR neg, now on dex, azithro, ceftriaxone, and airvo. Feeling about the same. No n/v/d, no change in taste or smell. Full ROS performed and neg except as noted above. [facility] Medical History Non-smoker Medical History unable to obtain Home Medications NK 03/14/21 [History Last Taken Unknown] Allergy/AdvReac Type Severity Reaction Status Date / Time No Known Allergies Allergy Verified 03/14/21 18:59 Family History Other Heart disease Surgical History no surgical history Social History Smoking Status: Former smoker Physical Exam Const alert Constitutional Narrative: ill appearing General Appearance: cooperative Exam Limitations: no limitations HEENT normocephalic and head/scalp atraumatic Eyes PERRL and EOMs intact bilaterally Neck supple and No nodes Resp Auscultation: diminished lung sounds Cardio regular rate and regular rhythm GI soft to palpation, non-tender and non-distended Extremity no clubbing, cyanosis or edema Skin no rashes or lesions noted Neuro CN's II-XII intact bilaterally Lab / Micro Data Result Diagrams: 03/16/21 05:32 03/16/21 05:32 Labs: Laboratory Results - last 24 hr 03/15/21 17:02: Troponin I High Sens 43 03/16/21 05:32: WBC 8.4, RBC 4.75, Hgb 14.6, Hct 43.4, MCV 91.4, MCH 30.7, MCHC 33.6, RDW Std Deviation 43.7, RDW Coeff of Nito 12.9, Plt Count 357, MPV 10.2, Immature Gran % (Auto) 0.700, Neut % (Auto) 91.1 H, Lymph % (Auto) 6.4 L, [place] % (Auto) 1.7, Eos % (Auto) 0.0, Baso % (Auto) 0.1, Absolute Neuts (auto) 7.7, Absolute Lymphs (auto) 0.54 L, Nucleated RBC % 0, Differential Comment SCANNED 03/16/21 05:32: Sodium 142, Potassium 3.5, Chloride 110 H, Carbon Dioxide 21.0, Anion Gap 11, BUN 17, Creatinine 0.81, Estim Creat Clear Calc 84.24, Est GFR (MDRD) Af Amer 124, Est GFR (MDRD) Non-Af 103, BUN/Creatinine Ratio 21.1 H, Glucose 117 H, Calcium 8.4 L, Total Bilirubin 0.40, AST 32, ALT 50, Alkaline Phosphatase 51, Total Protein 6.9, Albumin 1.7 L, Globulin 5.2 H, Albumin/Globulin Ratio 0.3 L 03/16/21 05:32: Hemoglobin A1c 5.7 H Micro: Microbiology 03/14/21 19:49 Blood Culture (Wb) - Anticubital Left Bacteria Detection (PCR) - Preliminary Staphylococcus epidermidis 03/14/21 19:49 Blood Culture (Wb) - Anticubital Left Blood Culture - Preliminary
--- NOTE | 2021-03-16 12:43 | PCM.PN.INT ---
Assessment & Plan Assessment/Plan (1) Respiratory failure: QUALIFIERS: Chronicity: acute Respiratory failure complication: hypoxia Qualified Code(s): J96.01 - Acute respiratory failure with hypoxia (2) Lactic acidosis: (3) Elevated d-dimer: PLAN: RECOMMENDATIONS: 1. Continue Airvo. Wean supplemental oxygen as tolerated 2. Empiric antibiotics pending cultures and Decadron 3. Await response to diuretic therapy 4. Monitor for alcohol withdrawal and refeeding syndrome 5. Attempt to obtain old records to assess renal function 6. Cannot exclude the need for BiPAP rescue in the next 24 hours IMPRESSIONS: 1. Acute hypoxic respiratory failure Unclear etiology at this time. Patient was relatively belligerent when discussing COVID-19. Groundglass opacities are in a pattern consistent with COVID-19. However, other possible etiologies would include other atypical viral infections or congestive heart failure. Unfortunately, viral panels are not available at this time. Given improved renal function, agree with diuretic challenge. RSV was negative. Continue to wean supplemental oxygen as tolerated. Agree with Decadron therapy. Patient does have some emphysematous changes, but denied any smoking history to me. Patient did not have a PE to account for findings. ID is suggesting therapy for COVID-19. Unclear if baricitinib would be a good option given elevated CRP if COVID-19 is the proposed etiology. 2. Acute kidney injury Resolved. Baseline creatinine is not available at this time. Patient was elevated at 1.77 on presentation and this has improved with supportive therapy. However, it is unclear if there is a chronic component. Patient appears to be relatively adverse to medical evaluation. 3. Hyperglycemia Patient appears to have an element of insulin resistance. Patient was appropriately placed on sliding scale and Accu-Cheks. Hemoglobin A1c is elevated slightly. 4. Poor historian/nonvaccinated status Complicates care, management, recovery and prognosis. Will attempt to obtain further information from family members if possible. Subjective Subjective Patient continues to be very difficult to get a history from. Patient states he feels relatively improved compared to yesterday, but is requiring Airvo to maintain saturations. Patient denies any current chest pain but does report coughing with deep inhalation. This is largely nonproductive. Objective Data Objective Data Vital Signs: Vital Signs Temp Pulse Resp BP Pulse Ox 36.9 C 103 H 26 H 116/86 H 91 03/16/21 12:00 03/16/21 12:00 03/16/21 12:00 03/16/21 12:00 03/16/21 12:00 Oxygen Flow Rate (L/min) 50 Oxygen Delivery Method Airvo Weight: 65.5 kg Body Mass Index (BMI) 23.3 Intake & Output: Intake and Output for Last 24 Hours 03/14/21 03/15/21 03/16/21 23:59 23:59 23:59 Intake Total 500 / 500 3076.67 / 3476.67 705 / 705 Output Total 900 / 1225 325 / 325 Balance 500 / 500 2176.67 / 2251.67 380 / 380 Lab / Micro Data Result Diagrams: 03/16/21 05:32 03/16/21 05:32 Labs: Laboratory Results - last 24 hr 03/15/21 17:02: Troponin I High Sens 43 03/16/21 05:32: WBC 8.4, RBC 4.75, Hgb 14.6, Hct 43.4, MCV 91.4, MCH 30.7, MCHC 33.6, RDW Std Deviation 43.7, RDW Coeff of Nito 12.9, Plt Count 357, MPV 10.2, Immature Gran % (Auto) 0.700, Neut % (Auto) 91.1 H, Lymph % (Auto) 6.4 L, [place] % (Auto) 1.7, Eos % (Auto) 0.0, Baso % (Auto) 0.1, Absolute Neuts (auto) 7.7, Absolute Lymphs (auto) 0.54 L, Nucleated RBC % 0, Differential Comment SCANNED 03/16/21 05:32: Sodium 142, Potassium 3.5, Chloride 110 H, Carbon Dioxide 21.0, Anion Gap 11, BUN 17, Creatinine 0.81, Estim Creat Clear Calc 84.24, Est GFR (MDRD) Af Amer 124, Est GFR (MDRD) Non-Af 103, BUN/Creatinine Ratio 21.1 H, Glucose 117 H, Calcium 8.4 L, Total Bilirubin 0.40, AST 32, ALT 50, Alkaline Phosphatase 51, Total Protein 6.9, Albumin 1.7 L, Globulin 5.2 H, Albumin/Globulin Ratio 0.3 L 03/16/21 05:32: Hemoglobin A1c 5.7 H Micro: Microbiology 03/14/21 19:49 Blood Culture (Wb) - Anticubital Left Bacteria Detection (PCR) - Preliminary Staphylococcus epidermidis 03/14/21 19:49 Blood Culture (Wb) - Anticubital Left Blood Culture - Preliminary 03/15/21 02:30 Urine, Clean Catch Legionella Antigen - Final 03/15/21 02:30 Urine, Clean Catch Streptococcus pneumoniae Antigen (M - Final 03/15/21 02:46 Mucosa - Nasopharyngeal Rapid RSV (DFA) - Final 03/14/21 20:10 Mucosa - Nose Influenza Types A,B Direct FA (RAMONITA) - Final 03/14/21 19:49 Nasal Secretion SARS-CoV-2 Antigen (Rapid) - Final Physical Exam Const alert and oriented x3 Constitutional Narrative: On Airvo. Paulino appearance. General Appearance: disheveled, ill appearing and appears older than stated age Exam Limitations: no limitations HEENT head/scalp atraumatic, moist oral mucous membranes and oropharynx normal Head and Scalp: normocephalic Eyes PERRL, EOMs intact bilaterally and conjunctivae normal Eyes Narrative: No scleral icterus Neck No nuchal rigidity, no lymphadenopathy, supple and no JVD General: trachea midline Chest inspection of chest normal Chest: abnormal inspection of the chest increased A-P diameter; Negative for crepitus Resp normal respiratory effort, no retractions, no use of accessory muscles and No clear to auscultation bilaterally Auscultation: rales and diminished lung sounds; Negative for rhonchi or wheezes Cardio regular rhythm, S1 normal heart sound, S2 normal heart sound, no murmurs, no rub, no gallops, no clicks and no JVD GI normal to inspection, nondistended, normoactive bowel sounds, soft to palpation, non-tender and non-distended Extremity no clubbing, cyanosis or edema Peripheral Pulses: Yes pulses 2+ throughout Skin no rashes or lesions noted, no wounds, skin turgor normal, no jaundice, no petechiae and no mottling Neuro oriented x3, moves all extremities, no focal motor deficits and no sensory deficits noted Neuro Narrative: Generalized weakness but no focal deficits Sensorium / Orientation: awake and alert Speech: speech normal Psych affect normal Charges/Coding Visit Charges Inpatient E&M: 19995 Subs Hosp L3
--- NOTE | 2021-03-16 15:03 | PN.HOSP_ITS ---
Subjective Subjective Patient remains on air Vo. Mild confusion although I did wake him from sleeping fairly sound sleep. Patient is currently on an FiO2 of 68% and a flow of 50 L/min with an SPO2 of 91 to 94%. He has been able to be down titrated some. Given the fact that he is somewhat sleepy I will go ahead and check an ABG to ma ke sure he is not retaining CO2. Objective Data Objective Data Vital Signs: Vital Signs Temp Pulse Resp BP Pulse Ox 98.5 F 114 H 37 H 116/86 H 90 03/16/21 12:00 03/16/21 14:37 03/16/21 14:37 03/16/21 12:00 03/16/21 14:37 Oxygen Flow Rate (L/min) 50 Oxygen Delivery Method Airvo Weight: 65.5 kg Body Mass Index (BMI) 23.3 Intake & Output: Intake and Output for Last 24 Hours 03/14/21 03/15/21 03/16/21 23:59 23:59 23:59 Intake Total 500 / 500 3076.67 / 3476.67 705 / 705 Output Total 900 / 1225 325 / 325 Balance 500 / 500 2176.67 / 2251.67 380 / 380 Lab / Micro Data Result Diagrams: 03/16/21 05:32 03/16/21 05:32 Labs: Laboratory Results - last 24 hr 03/15/21 17:02: Troponin I High Sens 43 03/16/21 05:32: WBC 8.4, RBC 4.75, Hgb 14.6, Hct 43.4, MCV 91.4, MCH 30.7, MCHC 33.6, RDW Std Deviation 43.7, RDW Coeff of Nito 12.9, Plt Count 357, MPV 10.2, Immature Gran % (Auto) 0.700, Neut % (Auto) 91.1 H, Lymph % (Auto) 6.4 L, [place] % (Auto) 1.7, Eos % (Auto) 0.0, Baso % (Auto) 0.1, Absolute Neuts (auto) 7.7, Absolute Lymphs (auto) 0.54 L, Nucleated RBC % 0, Differential Comment SCANNED 03/16/21 05:32: Sodium 142, Potassium 3.5, Chloride 110 H, Carbon Dioxide 21.0, Anion Gap 11, BUN 17, Creatinine 0.81, Estim Creat Clear Calc 84.24, Est GFR (MDRD) Af Amer 124, Est GFR (MDRD) Non-Af 103, BUN/Creatinine Ratio 21.1 H, Glucose 117 H, Calcium 8.4 L, Total Bilirubin 0.40, AST 32, ALT 50, Alkaline Phosphatase 51, Total Protein 6.9, Albumin 1.7 L, Globulin 5.2 H, Albumin/Globulin Ratio 0.3 L 03/16/21 05:32: Hemoglobin A1c 5.7 H Micro: Microbiology 03/14/21 19:49 Blood Culture (Wb) - Anticubital Left Bacteria Detection (PCR) - Preliminary Staphylococcus epidermidis 03/14/21 19:49 Blood Culture (Wb) - Anticubital Left Blood Culture - Preliminary 03/15/21 02:30 Urine, Clean Catch Legionella Antigen - Final 03/15/21 02:30 Urine, Clean Catch Streptococcus pneumoniae Antigen (M - Final 03/15/21 02:46 Mucosa - Nasopharyngeal Rapid RSV (DFA) - Final 03/14/21 20:10 Mucosa - Nose Influenza Types A,B Direct FA (RAMONITA) - Final 03/14/21 19:49 Nasal Secretion SARS-CoV-2 Antigen (Rapid) - Final Physical Exam Const alert Constitutional Narrative: Upper middle-aged white male who appears much older than stated age lying in bed sleeping soundly, awakens easily but appears mildly confused upon waking, on air Vo Exam Limitations: no limitations HEENT head/scalp atraumatic, moist oral mucous membranes and oropharynx normal HEENT Narrative: Dentition is poor, Mallampati is 2, no thrush Head and Scalp: normocephalic Neck supple Resp no retractions, no use of accessory muscles and No clear to auscultation bilaterally Resp Narrative: Patient remains with bibasilar crackles, tachypnea noted Auscultation: crackles and rales; Negative for rhonchi or wheezes Cardio regular rhythm, S1 normal heart sound, S2 normal heart sound, no murmurs, no rub, no gallops, no clicks and no JVD Cardio Narrative: Mild tachycardia with heart rates in the low 100 region GI normal to inspection, nondistended, normoactive bowel sounds, soft to palpation, non-tender and non-distended Extremity no clubbing, cyanosis or edema Peripheral Pulses: Yes pulses 2+ throughout Skin no rashes or lesions noted, no wounds, skin turgor normal, no jaundice, no petechiae and no mottling Neuro moves all extremities and no focal motor deficits Neuro Narrative: Sleeping but awakens easily, confused upon waking Speech: speech normal Assessment & Plan Assessment/Plan (1) Acute hypoxemic respiratory failure due to COVID-19: (2) Elevated d-dimer: (3) Hypokalemia: (4) CONNOR (acute kidney injury): (5) Lactic acidosis: (6) Elevated troponin I level: PLAN: Acute hypoxic respiratory failure -Etiology is undetermined at this time although CAT scan appears consistent with viral pneumonia -COVID-19 infection is highly suspected at this time -he has been symptomatic for over 14 days so it is therefore possible that he is negative with rapid and PCR testing -IgM and IgG antibodies are pending -Lab work is very suspicious for Covid infection as well with elevated fibrinogen/CRP/ESR/D-dimer/LDH -Continue supplemental oxygen -Patient is currently on air Vo at 55 L/min and an FiO2 of 73% with a pulse ox of 94 to 99% -Titrate as able/needed -Flu testing is negative -Blood cultures are pending -RSV is negative -Mycoplasma IgG and IgM is pending -Strep pneumo and Legionella antigens are negative -Continue empiric antibiotics with ceftriaxone and azithromycin -Continue Decadron day 3 of 10 -Patient is out of the window for remdesivir -Check echocardiogram -I-S and Acapella -Lasix 40 mg x 1 dose IV push -Monitor daily and attempt to maintain euvolemia -ID is following and recommends isolation until 03/23/2021 -Pulmonary following-appreciate input -Patient is in danger of requiring intubation and CODE STATUS is DNR CCA with intubation -May need to transition to BiPAP Metabolic encephalopathy -Unclear if this is related to acute Covid infection versus hypercapnia versus somnolence from being awakened -We will check ABG to rule out hypercapnia -Tinea to monitor clinically Elevated D-dimer -CTA chest negative for PE -Continue prophylactic dose Lovenox Hypokalemia -Resolved but will repeat dose this patient was given diuretic this morning -Repeat BMP in a.m. Elevated troponin -Mild elevation -Troponin has normalized and suspect mild elevation due to hypoxia induced strain with demand ischemia Lactic acidosis -This is mild and improved -Suspect related to hypoxia CONNOR -Resolved -Creatinine has improved to 0.81 Hyperglycemia -Markedly elevated blood sugars with a current glucose of 260 on fasting lab this morning -Add SSI and Accu-Cheks -Check hemoglobin A1c DVT prophylaxis -Continue Lovenox 30 mg twice daily CODE STATUS -DNR CCA with intubation as documented per discussion on admission Charges/Coding Visit Charges Inpatient E&M: 30457 Subs Hosp L2
--- NOTE | 2021-03-16 15:12 | ECHOD_ITS ---
Reason For Study: CHF Procedure This was a 2D Doppler, Color Flow transthoracic echocardiogram. Techncially difficult study, patient shaking. Exam performed portable in ICU/CCU. The exam was abbreviated due to the COVID 19 protocol. Left Ventricle Normal left ventricle. The estimated ejection fraction is 55-60 %. Right Ventricle Normal right ventricle. Atria Normal left atrium. Normal right atrium. Mitral Valve There is mild mitral annular calcification. Tricuspid Valve Normal tricuspid valve. Aortic Valve Mild diffuse aortic valve calcification. Trivial aortic valve insufficiency. Pulmonic Valve The pulmonic valve is not well visualized. Great Vessels Normal aortic root. Pericardium/Pleural No pericardial effusion. MMode/2D Measurements & Calculations LVIDd: 4.6 cm IVSd: 0.96 cm Ao root diam: 3.5 cm LVIDs: 2.5 cm LVPWd: 0.94 cm FS: 46.3 % LAV(MOD-sp4): 28.2 ml LA A4 area: 13.6 cm2 Time Measurements MV dec time: 0.21 sec Doppler Measurements & Calculations MV E max guzman: 64.4 cm/sec Lat Peak E' Guzman: 7.8 cm/sec Med Peak E' Guzman: 9.7 cm/sec MV A max guzman: 88.2 cm/sec E/E' lat: 8.3 E/E' med: 6.6 MV E/A: 0.73 MV V2 max: 97.3 cm/sec MV P1/2t max guzman: 80.9 cm/sec MV max P.8 mmHg MV P1/2t: 52.1 msec MV V2 mean: 53.6 cm/sec MV dec slope: 454.9 cm/sec2 MV mean P.3 mmHg MVA(P1/2t): 4.2 cm2 MV V2 VTI: 20.5 cm ECHO/Echo Complete Interpretation Summary The estimated ejection fraction is 55-60 %. Normal LV systolic function Grade #1 Diastolic Dysfunction No prior echo to compare Ordering Physician: Concha Mcintyre Referring Physician: No PCP noted Performed By: Johnathon Ayers RCS
[2021-03-16] MEDS: Metoprolol Tartrate 25 MG Tablet 12.5 MG PO ×2 (15:49→19:57)
[2021-03-16 15:50] LABS: Allen Test Positive; Base Excess 0 mmol/L (-2 to +2); Bicarbonate 22.9 mmol/L (22-26); Blood Gas Specimen Type ART; O2 Delivery Device BiPAP; PO2 58 mmHG (75-100); SITE R Radial; SO2 93 % (95-99); Total Carbon Dioxide 24 mmol/L; pCO2 26.6 mmHg (35-45); pH 7.54 (7.35-7.45)
--- NOTE | 2021-03-16 15:58 | CPS ---
Bipap started due to patient oxygen needs and rr increasing
--- NOTE | 2021-03-16 16:13 | PCM.HOSP.N ---
Hospitalist Note Patient required transition to BiPAP continuous secondary to worsening hypoxia. Given the fact that he is on 100% FiO2 on BiPAP and okay for intubation we will transfer him to the ICU. Discontinue ceftriaxone and azithromycin and start vancomycin and Zosyn given worsening clinical status. 40 mg of IV push Lasix x1 was repeated this afternoon. Echocardiogram has been ordered. I did attempt to call his Lesli Massey at [phone] twice but each time it states that the number has been disconnected.
[2021-03-16] MEDS: Vancomycin IV 1,000 MG/200 ML BAG 200 MG IV (17:18)
--- NOTE | 2021-03-16 17:20 | NURSING ---
assessment completed cleaned up for incontinence hale palced for sob/icu hypoxia with movement ice packs applied for temp
[2021-03-16] MEDS: Acetaminophen 650 MG Suppository RC (18:29)
--- NOTE | 2021-03-16 18:54 | PCM.RX.CS ---
Consult Pharmacy has been consulted to manage selected antiobiotic: Vancomycin Type of Consult: New start Prior Doses of Antibiotics Received/Current Regimen: Medications Discontinued Medications Vancomycin HCl (Vancomycin) 1,000 mg in 200 mls @ 200 mls/hr IV X1 ONE Stop: 03/16/21 17:59 Last Admin: 03/16/21 18:33 Dose: Infused Documented by: Labs: Sodium 142 mmol/L (136-145) 03/16/21 05:32 Potassium 3.5 mmol/L (3.5-5.1) 03/16/21 05:32 Chloride 110 mmol/L (98-107) H 03/16/21 05:32 Carbon Dioxide 21.0 mmol/L (21.0-32.0) 03/16/21 05:32 Anion Gap 11 (5-15) 03/16/21 05:32 BUN 17 mg/dL (7-18) 03/16/21 05:32 Creatinine 0.81 mg/dL (0.70-1.30) 03/16/21 05:32 Est GFR (MDRD) Af Amer 124 mL/min (>60) 03/16/21 05:32 Est GFR (MDRD) Non-Af 103 mL/min (>60) 03/16/21 05:32 BUN/Creatinine Ratio 21.1 RATIO (10-20) H 03/16/21 05:32 Glucose 117 mg/dL (74-106) H 03/16/21 05:32 Microbiology: Microbiology 03/14/21 19:49 Blood Culture (Wb) - Anticubital Left Bacteria Detection (PCR) - Preliminary Staphylococcus epidermidis 03/14/21 19:49 Blood Culture (Wb) - Anticubital Left Blood Culture - Preliminary 03/15/21 02:30 Urine, Clean Catch Legionella Antigen - Final 03/15/21 02:30 Urine, Clean Catch Streptococcus pneumoniae Antigen (M - Final 03/15/21 02:46 Mucosa - Nasopharyngeal Rapid RSV (DFA) - Final 03/14/21 20:10 Mucosa - Nose Influenza Types A,B Direct FA (RAMONITA) - Final 03/14/21 19:49 Nasal Secretion SARS-CoV-2 Antigen (Rapid) - Final Weight used for dosin kg Goal Trough: 15-20 mcg/mL Pharmacy Plan for Drug Dosing: Vanc 1000mg IV given x1, 1250mg IV q12h with trough prior to 4th dose. Pharmacy Service will continue to monitor and adjust dosing as required. Follow-Up Labs: Trough Vancomycin - 03/18 @ 0565
[2021-03-17] VITALS (34 sets, daily range): BP systolic 102–146; BP diastolic 73–99; PULSE 73–117; RESP 14–42; TEMP 37.3–39.9; O2SAT 78–98
[2021-03-17] MEDS: Acetaminophen 325 MG Tablet 650 MG PO (03:56)
[2021-03-17 04:26] LABS: Absolute Lymphocyte Count 1.12 X10^3/uL (0.83-4.51); Absolute Neutrophil Count 7.6 X10^3/uL (2.0-7.7); Basophil# 0.01 X10^3/uL; Basophil% 0.1 % (0-1); Hematocrit 47.8 % (40-54); Hemoglobin 15.6 g/dL (13.0-16.5); Lymphocyte # 1.12 X10^3/ul (0.83-4.51); Lymphocyte % 12.7 % (19-41); Mean Corp Hgb Conc 32.6 g/dL (32-36); Mean Corpuscular Hgb 30.8 pg (27.0-32.0); Mean Corpuscular Volume 94.5 fL (80-94); Mean Platelet Vol. 10.6 fl (6.2-12.0); Monocyte# 0.11 X10^3/uL; Monocyte% 1.2 % (0-10); NRBC Flagged by Analyzer 0 % (0-5); Neutrophil # 7.55 X10^3/uL (2.7-7.7); Neutrophil % 85.3 % (47-70); POSITIVE MORPHOLOGY YES; Platelet Count 399 K/mm3 (150-450); RBC Distribution Width CV 13.3 % (11.6-14.6); RBC Distribution Width SD 46.7 fl (35.1-43.9); Red Blood Count 5.06 M/mm3 (4.6-6.2); White Blood Count 8.9 K/mm3 (4.4-11.0)
[2021-03-17 04:27] LABS: Differential Indicated SCAN CRITERIA MET
[2021-03-17] MEDS: LORazepam 2 MG/ML Syringe IV ×4 (04:42→21:52)
[2021-03-17 04:43] LABS: Anion Gap 8 (5-15); BUN 21 mg/dL (7-18); BUN/Creat Ratio 19.1 RATIO (10-20); Calcium,Total 8.6 mg/dL (8.5-10.1); Chloride 104 mmol/L (98-107); EST Glomerular Filtration Rate 72 mL/min (>60); Est Glom Filt Rate - Afr Amer 87 mL/min (>60); Estimated Creatinine Clearance 62.03 ml/min; Glucose 93 mg/dL (74-106); Potassium 3.7 mmol/L (3.5-5.1); Sodium Level 142 mmol/L (136-145)
--- NOTE | 2021-03-17 04:55 | PCM.PN.BLA ---
Progress Note Notified by nursing team that patient is in distress with RR in 40s; HR 120; 87% on 100 percent bipap. Respiratory is putting patient on avap. Patient is anxious and anxiolytic requested by nurse. Temperature of 101.2F Patient was seen at the bedside. Alert and oriented x 3 On avap Tachypnea; Rales throughout. Tachycardia Impression Acute hypoxemic respiratory Failure Ativan ordered. Respiratory could not get ABG because of tremors. Respiratory to try again after ordered ativan kicks in. Continue PRN tylenol; antibiotics and decadron Advance care planning: Patient wants to be a DNR-CCA; no intubation. Discussed with patient advanced directives as well as CODE STATUS. Explained various CODE STATUS: FULL CODE, DNR CCA, DNR CCA with no intubation, and DNR CC- and what each meant. Patient elected to be a DNR-CCA without intubation. Order was changed from DNR-CCA with intubation to DNR-CCA without intubation. is not in agreement. Discussed with patient's wishes. Discuss with nursing team. Order was placed. Patient wants patient's brother to be notified. Nursing team to update brother. Time spent on discussion 16 minutes. Procedures Hospitalists Procedures: [id number] Advncd Care Plan 30 Min
[2021-03-17 05:45] LABS: Differential Comment SCANNED
--- NOTE | 2021-03-17 06:53 | NURSING ---
Contacted pt brother and left a voicemail with unit number requesting a call back at [phone].
[2021-03-17] MEDS: Enoxaparin 30 MG/0.3 ML Syringe SC ×2 (08:45→21:55)
[2021-03-17] MEDS: Furosemide 40 MG/4 ML Vial IV (08:45)
--- NOTE | 2021-03-17 10:07 | PN.CC_ITS ---
Assessment & Plan Assessment/Plan (1) Respiratory failure: QUALIFIERS: Chronicity: acute Respiratory failure complication: hypoxia Qualified Code(s): J96.01 - Acute respiratory failure with hypoxia (2) Lactic acidosis: (3) Elevated d-dimer: PLAN: RECOMMENDATIONS: 1. Continue BiPAP. Wean supplemental oxygen as tolerated 2. Empiric antibiotics pending cultures and Decadron 3. Family meeting to discuss goals of care 4. Monitor for alcohol withdrawal and refeeding syndrome 5. Possible palliation later today IMPRESSIONS: 1. Acute hypoxic respiratory failure Unclear etiology at this time. Patient was relatively belligerent when discussing COVID-19. Patient with progression over the last 24 hours. High clinical suspicion for COVID-19 as an etiology and antibodies are currently pending. Patient with very delayed presentation and poor insight making diagnosis more difficult to make. Patient progressed despite diuretic therapy yesterday. Patient currently on maximal therapy by BiPAP. Patient very clear that he does not want to be intubated. Will attempt to have a family meeting to see if palliation may be a better course of action given patient's current distress. 2. Acute kidney injury Resolved. Baseline creatinine is not available at this time. Patient was elevated at 1.77 on presentation and this has improved with supportive therapy. However, it is unclear if there is a chronic component. Patient appears to be relatively adverse to medical evaluation. 3. Hyperglycemia Patient appears to have an element of insulin resistance. Patient was appropriately placed on sliding scale and Accu-Cheks. Hemoglobin A1c is el evated slightly. 4. Poor historian/nonvaccinated status Complicates care, management, recovery and prognosis. Will attempt to obtain further information from family members if possible. Addendum 12:18 PM Family meeting with patient's spouse and brother. She was updated on his current condition. She had suggested that she would go against his wishes and intubate him if I could. Made it clear to the spouse that the has expressed his wishes to not be intubated to his 2 separate physicians prior to his current state. She understands that BiPAP can be continued but that the patient's prognosis is grim. Did offer comfort measures as an option, but she was not open to this at this time. TIME: 45 minutes critical care time spent addressing patient's acute hypoxic respiratory failure, hyperglycemia, review of CODE STATUS, collaboration with care team and review of all data. Subjective Subjective Patient transferred to the intensive care unit yesterday afternoon secondary to continued hypoxia. Patient with significant difficulties overnight with a fever as high as 40.3 ?C and tachypnea. Patient was tired this morning, but did reiterate that he does not want to be intubated. Patient's has been updated. Patient not tolerating BiPAP breaks at this time. Objective Data Objective Data Vital Signs: Vital Signs Temp Pulse Resp BP Pulse Ox 37.9 C H 102 H 31 H 109/76 94 03/17/21 07:00 03/17/21 07:38 03/17/21 07:22 03/17/21 07:00 03/17/21 07:22 Oxygen Flow Rate (L/min) 100 Oxygen Delivery Method Bi-pap Weight: 68.22 kg Body Mass Index (BMI) 23.3 Intake & Output: Intake and Output for Last 24 Hours 03/15/21 03/16/21 03/17/21 23:59 23:59 23:59 Intake Total 3076.67 / 3476.67 1385 / 1385 825 / 825 Output Total 900 / 1225 1025 / 1025 350 / 350 Balance 2176.67 / 2251.67 360 / 360 475 / 475 Lab / Micro Data Result Diagrams: 03/17/21 11:15 03/17/21 11:15 Labs: Laboratory Results - last 24 hr 03/17/21 03:30: WBC 8.9, RBC 5.06, Hgb 15.6, Hct 47.8, MCV 94.5 H, MCH 30.8, MCHC 32.6, RDW Std Deviation 46.7 H, RDW Coeff of Nito 13.3, Plt Count 399, MPV 10.6, Immature Gran % (Auto) 0.700, Neut % (Auto) 85.3 H, Lymph % (Auto) 12.7 L, [place] % (Auto) 1.2, Eos % (Auto) 0.0, Baso % (Auto) 0.1, Absolute Neuts (auto) 7.6, Absolute Lymphs (auto) 1.12, Nucleated RBC % 0, Differential Comment SCANNED 03/17/21 03:30: Sodium 142, Potassium 3.7, Chloride 104, Carbon Dioxide 30.0, Anion Gap 8, BUN 21 H, Creatinine 1.10, Estim Creat Clear Calc 62.03, Est GFR (MDRD) Af Amer 87, Est GFR (MDRD) Non-Af 72, BUN/Creatinine Ratio 19.1, Glucose 93, Calcium 8.6 Micro: Microbiology 03/14/21 19:49 Blood Culture (Wb) - Anticubital Left Bacteria Detection (PCR) - Preliminary Staphylococcus epidermidis 03/14/21 19:49 Blood Culture (Wb) - Anticubital Left Blood Culture - Preliminary Staphylococcus epidermidis 03/15/21 02:30 Urine, Clean Catch Legionella Antigen - Final 03/15/21 02:30 Urine, Clean Catch Streptococcus pneumoniae Antigen (M - Final 03/15/21 02:46 Mucosa - Nasopharyngeal Rapid RSV (DFA) - Final 03/14/21 20:10 Mucosa - Nose Influenza Types A,B Direct FA (RAMONITA) - Final 03/14/21 19:49 Nasal Secretion SARS-CoV-2 Antigen (Rapid) - Final ABG Data ABG results: ABG 03/16/21 15:45 Specimen Type ART Sample Site R Radial pH 7.54 H Bicarbonate Actual 22.9 Total CO2 24 Base Excess 0 O2 Saturation 93 L ABG pCO2 26.6 L ABG pO2 58 L Richard Test Positive O2 Delivery Device BiPAP Clinical Comments 24/12 [id number] 100% Physical Exam Const alert Constitutional Narrative: On BiPAP. Significant conversational dyspnea General Appearance: disheveled, ill appearing and appears older than stated age Exam Limitations: no limitations HEENT head/scalp atraumatic, moist oral mucous membranes and oropharynx normal Head and Scalp: normocephalic Eyes PERRL, EOMs intact bilaterally and conjunctivae normal Eyes Narrative: No scleral icterus Neck No nuchal rigidity, no lymphadenopathy, supple and no JVD General: trachea midline Chest inspection of chest normal Chest: abnormal inspection of the chest increased A-P diameter; Negative for crepitus Resp normal respiratory effort, no retractions, no use of accessory muscles and No clear to auscultation bilaterally Auscultation: rales and diminished lung sounds; Negative for rhonchi or wheezes Cardio regular rhythm, S1 normal heart sound, S2 normal heart sound, no murmurs, no rub, no gallops, no clicks and no JVD GI normal to inspection, nondistended, normoactive bowel sounds, soft to palpation, non-tender and non-distended Extremity no clubbing, cyanosis or edema Peripheral Pulses: Yes pulses 2+ throughout Skin no rashes or lesions noted, no wounds, skin turgor normal, no jaundice, no petechiae and no mottling Neuro oriented x3, moves all extremities, no focal motor deficits and no sensory deficits noted Neuro Narrative: Generalized weakness but no focal deficits Sensorium / Orientation: awake and alert Speech: speech normal Psych affect normal Charges/Coding Procedures Hospitalists Procedures: 60786 Critial Care 1st Hr
[2021-03-17 11:34] LABS: Hematocrit 47.6 % (40-54); Hemoglobin 15.5 g/dL (13.0-16.5); Mean Corp Hgb Conc 32.6 g/dL (32-36); Mean Corpuscular Hgb 30.4 pg (27.0-32.0); Mean Corpuscular Volume 93.3 fL (80-94); Mean Platelet Vol. 10.4 fl (6.2-12.0); POSITIVE DIFFERENTIAL YES; POSITIVE MORPHOLOGY YES; Platelet Count 311 K/mm3 (150-450); RBC Distribution Width CV 13.1 % (11.6-14.6); RBC Distribution Width SD 44.8 fl (35.1-43.9); White Blood Count 7.1 K/mm3 (4.4-11.0)
[2021-03-17] MEDS: Acetaminophen 650 MG Suppository RC ×2 (12:03→21:52)
[2021-03-17 12:05] LABS: ALB/GLOB Ratio 0.3 RATIO (0.9-2.4); AST(SGOT) 30 U/L (15-37); Alanine Aminotransfer ALT/SGPT 46 U/L (16-61); Albumin, Serum 1.8 g/dL (3.2-5.0); Alkaline Phosphatase 71 U/L (45-117); Anion Gap 8 (5-15); BUN 22 mg/dL (7-18); Calcium,Total 8.9 mg/dL (8.5-10.1); Chloride 108 mmol/L (98-107); Creatinine, Serum 1.05 mg/dL (0.70-1.30); EST Glomerular Filtration Rate 76 mL/min (>60); Est Glom Filt Rate - Afr Amer 92 mL/min (>60); Estimated Creatinine Clearance 64.98 ml/min; Globulin 5.7 g/dL (2.2-4.2); Glucose 95 mg/dL (74-106); Magnesium 3.1 mg/dL (1.6-2.6); Phosphorus 2.9 mg/dL (2.5-4.9); Potassium 3.9 mmol/L (3.5-5.1); Protein, Total 7.5 g/dL (6.4-8.2); Sodium Level 143 mmol/L (136-145)
[2021-03-17 12:08] LABS: Differential Indicated SCAN CRITERIA MET
[2021-03-17 12:09] LABS: Poikilocytosis 1+; Tear Drop Cell RARE
--- NOTE | 2021-03-17 12:38 | PCM.PN.ID ---
Physical Exam Narrative Moved to icu, on 100% bipap, code status now dnr-cca. 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 Const Constitutional Narrative: ill appearing, shaking Resp Auscultation: diminished lung sounds Cardio Rate: tachycardic GI non-tender and non-distended Skin no rashes or lesions noted ID ID: Route of nutrition/ use of supplements: [] Nutritional Intake: [] IV Site: [] Thurston Catheter: [] Assessment & Plan Assessment/Plan (1) Respiratory failure: QUALIFIERS: Chronicity: acute Respiratory failure complication: hypoxia Qualified Code(s): J96.01 - Acute respiratory failure with hypoxia PLAN: Suspected covid based on symptoms, imaging, lymphopenia. PCR and Ag neg, Ab testing pending. On vanc/zosyn/dex. Recommend vaccine after discharge. Sx started around 14 days ago, would plan on isolation for one more week. Critically ill, poor prognosis, d/w nursing. Will follow
[2021-03-17 14:27] LABS: Absolute Lymphocyte Count 0.45 X10^3/uL (0.83-4.51); Absolute Neutrophil Count 6.4 X10^3/uL (2.0-7.7); Basophil# 0.02 X10^3/uL; Basophil% 0.3 % (0-1); Lymphocyte # 0.09 X10^3/ul (0.83-4.51); Lymphocyte % 6.4 % (19-41); Monocyte# 0.09 X10^3/uL; Monocyte% 1.3 % (0-10); Neutrophil # 6.43 X10^3/uL (2.7-7.7); Neutrophil % 90.9 % (47-70)
[2021-03-17 14:36] LABS: Mycoplasma Pneum AB IgG 324 U/mL (0-99); Mycoplasma pneum. AB IgM < 770 U/mL (0-769)
--- NOTE | 2021-03-17 15:45 | CASEMGMT ---
Social Work Pt and brother in to see pt. Meeting held with , brother, physician RN and this SW. Physician explained pt prognosis and pt expressed wishes for no intubation. Pt brother expressing understanding and offering assistance and support to pt . SW provided emotional support. Pt requesting social media campaign manager visit for pt. Phone call to national expansion recruiter Bait Man Reji Salinas and he agreed to visit with pt and . SW will remain available for continued family support as needed. MAURO Holden
--- NOTE | 2021-03-17 16:53 | PN.HOSP_ITS ---
Subjective Subjective Patient was transitioned ICU yesterday afternoon as per previous notes. He remains in poor condition on 100% FiO2 on BiPAP. He did decide to change his CODE STATUS to DNR CCA with no intubation early this morning and orders are reflective of this. His was at the bedside and we did discuss that his prognosis is overall very poor. She seems reluctant to accept this and states that she is hoping to be positive and telling him he needs to fight through this. Patient has had intermittent fevers Objective Data Objective Data Vital Signs: Vital Signs Temp Pulse Resp BP Pulse Ox 101.7 F H 73 36 H 104/77 91 03/17/21 15:00 03/17/21 15:00 03/17/21 15:00 03/17/21 15:00 03/17/21 15:00 Oxygen Flow Rate (L/min) 100 Oxygen Delivery Method Bi-pap Weight: 68.22 kg Body Mass Index (BMI) 23.3 Intake & Output: Intake and Output for Last 24 Hours 03/15/21 03/16/21 03/17/21 23:59 23:59 23:59 Intake Total 3076.67 / 3476.67 1385 / 1385 875 / 875 Output Total 900 / 1225 1025 / 1025 650 / 650 Balance 2176.67 / 2251.67 360 / 360 225 / 225 Lab / Micro Data Result Diagrams: 03/17/21 11:15 03/17/21 11:15 Labs: Laboratory Results - last 24 hr 03/15/21 01:45: Mycoplasma pneumon IgG 324 H, Mycoplasma pneumon IgM < 770 03/17/21 03:30: WBC 8.9, RBC 5.06, Hgb 15.6, Hct 47.8, MCV 94.5 H, MCH 30.8, MCHC 32.6, RDW Std Deviation 46.7 H, RDW Coeff of Nito 13.3, Plt Count 399, MPV 10.6, Immature Gran % (Auto) 0.700, Neut % (Auto) 85.3 H, Lymph % (Auto) 12.7 L, [place] % (Auto) 1.2, Eos % (Auto) 0.0, Baso % (Auto) 0.1, Absolute Neuts (auto) 7.6, Absolute Lymphs (auto) 1.12, Nucleated RBC % 0, Differential Comment SCANNED 03/17/21 03:30: Sodium 142, Potassium 3.7, Chloride 104, Carbon Dioxide 30.0, Anion Gap 8, BUN 21 H, Creatinine 1.10, Estim Creat Clear Calc 62.03, Est GFR (MDRD) Af Amer 87, Est GFR (MDRD) Non-Af 72, BUN/Creatinine Ratio 19.1, Glucose 93, Calcium 8.6 03/17/21 11:15: WBC 7.1, RBC 5.10, Hgb 15.5, Hct 47.6, MCV 93.3, MCH 30.4, MCHC 32.6, RDW Std Deviation 44.8 H, RDW Coeff of Nito 13.1, Plt Count 311, MPV 10.4, Immature Gran % (Auto) 1.100 H, Neut % (Auto) 90.9 H, Lymph % (Auto) 6.4 L, [place] % (Auto) 1.3, Eos % (Auto) 0.0, Baso % (Auto) 0.3, Absolute Neuts (auto) 6.4, Absolute Lymphs (auto) 0.45 L, Poikilocytosis 1+, Tear Drop Cells RARE 03/17/21 11:15: Sodium 143, Potassium 3.9, Chloride 108 H, Carbon Dioxide 27.0, Anion Gap 8, BUN 22 H, Creatinine 1.05, Estim Creat Clear Calc 64.98, Est GFR (MDRD) Af Amer 92, Est GFR (MDRD) Non-Af 76, BUN/Creatinine Ratio 21.0 H, Glucose 95, Calcium 8.9, Phosphorus 2.9, Magnesium 3.1 H, Total Bilirubin 0.60, AST 30, ALT 46, Alkaline Phosphatase 71, Total Protein 7.5, Albumin 1.8 L, Globulin 5.7 H, Albumin/Globulin Ratio 0.3 L 03/17/21 11:15: SARS-CoV-2 IgG Ab 8.38 H Micro: Microbiology 03/15/21 02:00 Blood Culture (Wb) - Anticubital Left Blood Culture - Preliminary No growth in 48 hours. 03/15/21 01:45 Blood Culture (Wb) - Right Hand Blood Culture - Preliminary No growth in 48 hours. 03/14/21 19:16 Blood Culture (Wb) - Anticubital Right Blood Culture - Preliminary No growth in 48 hours. 03/14/21 19:49 Blood Culture (Wb) - Anticubital Left Bacteria Detection (PCR) - Preliminary Staphylococcus epidermidis 03/14/21 19:49 Blood Culture (Wb) - Anticubital Left Blood Culture - Preliminary Staphylococcus epidermidis 03/15/21 02:30 Urine, Clean Catch Legionella Antigen - Final 03/15/21 02:30 Urine, Clean Catch Streptococcus pneumoniae Antigen (M - Final 03/15/21 02:46 Mucosa - Nasopharyngeal Rapid RSV (DFA) - Final 03/14/21 20:10 Mucosa - Nose Influenza Types A,B Direct FA (RAMONITA) - Final 03/14/21 19:49 Nasal Secretion SARS-CoV-2 Antigen (Rapid) - Final Radiography Diagnostic Testing: Radiology Impression Echocardiogram 03/16/21 15:12 Interpretation Summary The estimated ejection fraction is 55-60 %. Normal LV systolic function Grade #1 Diastolic Dysfunction No prior echo to compare Ordering Physician: Concha Mcintyre Referring Physician: No PCP noted Performed By: Johnathon Ayers RCS Physical Exam Const alert Constitutional Narrative: Upper middle-aged white male who appears much older than stated age lying in bed on BiPAP, arouses some with exam but no meaningful interaction, at bedside, patient appears ill Exam Limitations: no limitations HEENT head/scalp atraumatic HEENT Narrative: BiPAP in place and mucous membranes are dry Head and Scalp: normocephalic Resp no retractions, no use of accessory muscles and No clear to auscultation bilaterally Resp Narrative: Patient remains with bibasilar crackles, continued tachypnea noted despite noninvasive ventilation Auscultation: crackles and rales; Negative for rhonchi or wheezes Cardio regular rate, regular rhythm, S1 normal heart sound, S2 normal heart sound, no murmurs, no rub, no gallops, no clicks and no JVD GI normal to inspection, nondistended, normoactive bowel sounds, soft to palpation, non-tender and non-distended Extremity no clubbing, cyanosis or edema Skin no rashes or lesions noted, no wounds, skin turgor normal, no jaundice, no petechiae and no mottling Neuro Neuro Narrative: Patient's eyes are closed but he does awaken and arouse some during my interaction, no meaningful interaction at this time but does move all extremities Assessment & Plan Assessment/Plan (1) Acute hypoxemic respiratory failure due to COVID-19: (2) Elevated d-dimer: (3) Hypokalemia: (4) CONNOR (acute kidney injury): (5) Lactic acidosis: (6) Elevated troponin I level: PLAN: Acute hypoxic respiratory failure -Etiology is undetermined at this time although CAT scan appears consistent with viral pneumonia -COVID-19 infection is highly suspected at this time -he has been symptomatic for over 14 days so it is therefore possible that he is negative with rapid and PCR testing -IgG antibody is elevated/IgM still pending -This is consistent with recent Covid infection as patient has not been vaccinated -Lab work is very suspicious for Covid infection as well with elevated fibrinogen/CRP/ESR/D-dimer/LDH -Continue supplemental oxygen -Patient is currently on BiPAP at 100% with an SPO2 of 89 to 94% -Titrate as able/needed -Flu testing is negative -Blood cultures are negative -RSV is negative -Mycoplasma IgG and IgM is pending -Strep pneumo and Legionella antigens are negative -Continue empiric antibiotics broadened to Vanco and Zosyn with fevers -Continue Decadron day 4 of 10 -Patient is out of the window for remdesivir -Echocardiogram showed EF of 55 to 60% with normal LV systolic function and grade 1 diastolic dysfunction -I-S and Acapella -Lasix 40 mg x 1 dose IV push again today -Monitor daily and attempt to maintain euvolemia -ID is following and recommends isolation until 03/23/2021 -Pulmonary following-appreciate input -Patient is in danger of requiring intubation and CODE STATUS is DNR CCA with intubation -May need to transition to BiPAP Metabolic encephalopathy -Suspect this is related to hypoxia and acute COVID-19 infection -Blood gas did not show any hypercapnia Elevated D-dimer -CTA chest negative for PE -Continue prophylactic dose Lovenox Hypokalemia -Resolved Elevated troponin -Mild elevation -Troponin has normalized and suspect mild elevation due to hypoxia induced strain with demand ischemia -Echo performed and showed no wall motion abnormality Lactic acidosis -This is mild and improved -Suspect related to hypoxia CONNOR -Resolved -Creatinine has improved to 0.81 Hyperglycemia -Markedly elevated blood sugars with a current glucose of 260 on fasting lab this morning -Add SSI and Accu-Cheks -Hemoglobin A1c 5.7 DVT prophylaxis -Continue Lovenox 30 mg twice daily CODE STATUS -DNR CCA with intubation -Overall prognosis is poor and this has been relayed to his who remains unrealistic at this time. We did discuss with her extensively the severity of his disease and given that he does not want intubated his risk of is high. Charges/Coding Visit Charges Inpatient E&M: 89659 Subs Hosp L2
--- NOTE | 2021-03-17 21:23 | PCM.PN.BLA ---
Progress Note Notified that patient's is on p.o. metoprolol but currently n.p.o. Metoprolol IV ordered. Hydralazine not ordered secondary tachycardia. Vasotec not ordered because on presentation patient creatinine was elevated.
[2021-03-17] MEDS: Metoprolol Tartrate 5 MG/5 ML Vial IV (21:56)
[2021-03-17] MEDS: 0.9% Saline Lock 10 ML Syringe IV (22:11)
[2021-03-18] VITALS (39 sets, daily range): BP systolic 93–138; BP diastolic 70–99; PULSE 74–159; RESP 14–97; TEMP 37.1–39.8; O2SAT 83–100
[2021-03-18] MEDS: Metoprolol Tartrate 5 MG/5 ML Vial IV ×5 (00:22→23:50)
[2021-03-18] MEDS: LORazepam 2 MG/ML Syringe IV ×4 (02:34→20:31)
[2021-03-18 06:41] LABS: Absolute Lymphocyte Count 0.77 X10^3/uL (0.83-4.51); Absolute Neutrophil Count 8.2 X10^3/uL (2.0-7.7); Basophil# 0.02 X10^3/uL; Basophil% 0.2 % (0-1); Hematocrit 48.6 % (40-54); Hemoglobin 15.3 g/dL (13.0-16.5); Lymphocyte # 0.77 X10^3/ul (0.83-4.51); Lymphocyte % 8.3 % (19-41); Mean Corp Hgb Conc 31.5 g/dL (32-36); Mean Corpuscular Hgb 30.4 pg (27.0-32.0); Mean Corpuscular Volume 96.4 fL (80-94); Mean Platelet Vol. 10.5 fl (6.2-12.0); Monocyte# 0.16 X10^3/uL; Monocyte% 1.7 % (0-10); NRBC Flagged by Analyzer 0 % (0-5); Neutrophil # 8.23 X10^3/uL (2.7-7.7); POSITIVE MORPHOLOGY YES; Platelet Count 281 K/mm3 (150-450); RBC Distribution Width CV 13.3 % (11.6-14.6); RBC Distribution Width SD 47.3 fl (35.1-43.9); Red Blood Count 5.04 M/mm3 (4.6-6.2); White Blood Count 9.3 K/mm3 (4.4-11.0)
[2021-03-18 07:05] LABS: Differential Indicated SCAN CRITERIA MET
[2021-03-18 07:16] LABS: Vancomycin, Trough Level 12.4 ug/mL (5.0-15.0)
--- NOTE | 2021-03-18 07:28 | PN.CC_ITS ---
Assessment & Plan Assessment/Plan (1) Respiratory failure: QUALIFIERS: Chronicity: acute Respiratory failure complication: hypoxia Qualified Code(s): J96.01 - Acute respiratory failure with hypoxia (2) Lactic acidosis: (3) Elevated d-dimer: PLAN: RECOMMENDATIONS: 1. Continue BiPAP. Wean supplemental oxygen as tolerated 2. Empiric antibiotics pending cultures and Decadron 3. Continued family meeting to discuss goals of care 4. Appears to be actively dying in my opinion IMPRESSIONS: 1. Acute hypoxic respiratory failure Unclear etiology at this time. Patient was relatively belligerent when discussing COVID-19. Patient with progression over the last 24 hours. High clinical suspicion for COVID-19 as an etiology and antibodies are positive despite lack of immunization. Patient with very delayed presentation and poor insight making diagnosis more difficult to make. Patient currently on maximal therapy by BiPAP. Patient was very clear that he does not want to be intubated. Patient appears to be actively dying, but family is refusing palliative measures at this time. We will continue to address with family, but treatment options are minimal given patient's reported wishes. 2. Acute kidney injury Resolved. Baseline creatinine is not available at this time. Patient was elevated at 1.77 on presentation and this has improved with supportive therapy. However, it is unclear if there is a chronic component. Patient appears to be relatively adverse to medical evaluation. 3. Hyperglycemia Patient appears to have an element of insulin resistance. Patient was appropriately placed on sliding scale and Accu-Cheks. Hemoglobin A1c is elevated slightly. 4. Poor historian/nonvaccinated status Complicates care, management, recovery and prognosis. Will attempt to obtain further information from family members if possible. TIME: 31 minutes critical care time spent addressing patient's acute hypoxic respiratory failure, hyperglycemia, review of CODE STATUS, collaboration with care team and review of all data. Subjective Subjective Patient relatively unchanged overnight. Patient has had significant fever throughout the evening and marginal saturations despite continuous BiPAP at 100%. Patient has been given Ativan intermittently, but this has had to be limited secondary to goals of therapy. Patient is not very interactive at this time. Objective Data Objective Data Vital Signs: Vital Signs Temp Pulse Resp BP Pulse Ox 38.4 C H 101 H 44 H 120/86 H 88 03/18/21 04:00 03/18/21 06:40 03/18/21 04:28 03/18/21 06:40 03/18/21 04:28 Oxygen Flow Rate (L/min) 100 Oxygen Delivery Method Bi-pap Weight: 66.814 kg Body Mass Index (BMI) 23.3 Intake & Output: Intake and Output for Last 24 Hours 03/16/21 03/17/21 03/18/21 23:59 23:59 23:59 Intake Total 1385 / 1385 1477.50 / 1477.50 50 / 50 Output Total 1025 / 1025 1175 / 1175 Balance 360 / 360 302.50 / 302.50 50 / 50 Lab / Micro Data Result Diagrams: 03/18/21 06:30 03/17/21 11:15 Labs: Laboratory Results - last 24 hr 03/15/21 01:45: Mycoplasma pneumon IgG 324 H, Mycoplasma pneumon IgM < 770 03/17/21 11:15: WBC 7.1, RBC 5.10, Hgb 15.5, Hct 47.6, MCV 93.3, MCH 30.4, MCHC 32.6, RDW Std Deviation 44.8 H, RDW Coeff of Nito 13.1, Plt Count 311, MPV 10.4, Immature Gran % (Auto) 1.100 H, Neut % (Auto) 90.9 H, Lymph % (Auto) 6.4 L, [place] % (Auto) 1.3, Eos % (Auto) 0.0, Baso % (Auto) 0.3, Absolute Neuts (auto) 6.4, Absolute Lymphs (auto) 0.45 L, Poikilocytosis 1+, Tear Drop Cells RARE 03/17/21 11:15: Sodium 143, Potassium 3.9, Chloride 108 H, Carbon Dioxide 27.0, Anion Gap 8, BUN 22 H, Creatinine 1.05, Estim Creat Clear Calc 64.98, Est GFR (MDRD) Af Amer 92, Est GFR (MDRD) Non-Af 76, BUN/Creatinine Ratio 21.0 H, Glucose 95, Calcium 8.9, Phosphorus 2.9, Magnesium 3.1 H, Total Bilirubin 0.60, AST 30, ALT 46, Alkaline Phosphatase 71, Total Protein 7.5, Albumin 1.8 L, Globulin 5.7 H, Albumin/Globulin Ratio 0.3 L 03/17/21 11:15: SARS-CoV-2 IgG Ab 8.38 H 03/18/21 06:30: Vancomycin Trough 12.4 03/18/21 06:30: WBC 9.3, RBC 5.04, Hgb 15.3, Hct 48.6, MCV 96.4 H, MCH 30.4, MCHC 31.5 L, RDW Std Deviation 47.3 H, RDW Coeff of Nito 13.3, Plt Count 281, MPV 10.5, Immature Gran % (Auto) 0.800, Neut % (Auto) 89.0 H, Lymph % (Auto) 8.3 L, [place] % (Auto) 1.7, Eos % (Auto) 0.0, Baso % (Auto) 0.2, Absolute Neuts (auto) 8.2 H, Absolute Lymphs (auto) 0.77 L, Nucleated RBC % 0 Micro: Microbiology 03/15/21 02:00 Blood Culture (Wb) - Anticubital Left Blood Culture - Preliminary No growth in 48 hours. 03/15/21 01:45 Blood Culture (Wb) - Right Hand Blood Culture - Preliminary No growth in 48 hours. 03/14/21 19:16 Blood Culture (Wb) - Anticubital Right Blood Culture - Preliminary No growth in 48 hours. 03/14/21 19:49 Blood Culture (Wb) - Anticubital Left Bacteria Detection (PCR) - Preliminary Staphylococcus epidermidis 03/14/21 19:49 Blood Culture (Wb) - Anticubital Left Blood Culture - Preliminary Staphylococcus epidermidis 03/15/21 02:30 Urine, Clean Catch Legionella Antigen - Final 03/15/21 02:30 Urine, Clean Catch Streptococcus pneumoniae Antigen (M - Fi nal 03/15/21 02:46 Mucosa - Nasopharyngeal Rapid RSV (DFA) - Final 03/14/21 20:10 Mucosa - Nose Influenza Types A,B Direct FA (RAMONITA) - Final 03/14/21 19:49 Nasal Secretion SARS-CoV-2 Antigen (Rapid) - Final Radiography Diagnostic Testing: Radiology Impression Echocardiogram 03/16/21 15:12 Interpretation Summary The estimated ejection fraction is 55-60 %. Normal LV systolic function Grade #1 Diastolic Dysfunction No prior echo to compare Ordering Physician: Concha Mcintyre Referring Physician: No PCP noted Performed By: Johnathon Ayers RCS Physical Exam Const Constitutional Narrative: On BiPAP. Opens eyes to voice only. Not really in teracting. General Appearance: disheveled, lethargic, ill appearing and appears older than stated age Exam Limitations: no limitations HEENT head/scalp atraumatic, moist oral mucous membranes and oropharynx normal Head and Scalp: normocephalic Eyes PERRL, EOMs intact bilaterally and conjunctivae normal Eyes Narrative: No scleral icterus Neck No nuchal rigidity, no lymphadenopathy, supple and no JVD General: trachea midline Chest inspection of chest normal Chest: abnormal inspection of the chest increased A-P diameter; Negative for crepitus Resp normal respiratory effort, no retractions, no use of accessory muscles and No clear to auscultation bilaterally Auscultation: rales and diminished lung sounds; Negative for rhonchi or wheezes Cardio regular rhythm, S1 normal heart sound, S2 normal heart sound, no murmurs, no rub, no gallops, no clicks and no JVD GI normal to inspection, nondistended, normoactive bowel sounds, soft to palpation, non-tender and non-distended Extremity no clubbing, cyanosis or edema Peripheral Pulses: Yes pulses 2+ throughout Skin no rashes or lesions noted, no wounds, skin turgor normal, no jaundice, no petechiae and no mottling Neuro oriented x3, moves all extremities, no focal motor deficits and no sensory deficits noted Neuro Narrative: Generalized weakness but no focal deficits Sensorium / Orientation: awake and alert Speech: speech normal Psych affect normal Charges/Coding Procedures Hospitalists Procedures: [id number] Critial Care 1st Hr
[2021-03-18 07:32] LABS: ALB/GLOB Ratio 0.3 RATIO (0.9-2.4); AST(SGOT) 30 U/L (15-37); Alanine Aminotransfer ALT/SGPT 42 U/L (16-61); Albumin, Serum 1.5 g/dL (3.2-5.0); Alkaline Phosphatase 81 U/L (45-117); Anion Gap 8 (5-15); BUN 26 mg/dL (7-18); BUN/Creat Ratio 24.5 RATIO (10-20); Calcium,Total 8.8 mg/dL (8.5-10.1); Chloride 114 mmol/L (98-107); Creatinine, Serum 1.06 mg/dL (0.70-1.30); EST Glomerular Filtration Rate 75 mL/min (>60); Est Glom Filt Rate - Afr Amer 91 mL/min (>60); Estimated Creatinine Clearance 64.37 ml/min; Globulin 5.9 g/dL (2.2-4.2); Glucose 99 mg/dL (74-106); Potassium 4.4 mmol/L (3.5-5.1); Protein, Total 7.4 g/dL (6.4-8.2); Sodium Level 148 mmol/L (136-145)
[2021-03-18 07:49] LABS: SAR-COV-2 IGA ANTIBODY Positive (Negative); SAR-COV-2 IGM ANTIBODY Positive (Negative)
--- NOTE | 2021-03-18 08:40 | PHA.PHARE_ITS ---
Consult Pharmacy has been consulted to manage selected antiobiotic: Vancomycin Labs: Sodium 148 mmol/L (136-145) H 03/18/21 06:30 Potassium 4.4 mmol/L (3.5-5.1) 03/18/21 06:30 Chloride 114 mmol/L (98-107) H 03/18/21 06:30 Carbon Dioxide 26.0 mmol/L (21.0-32.0) 03/18/21 06:30 Anion Gap 8 (5-15) 03/18/21 06:30 BUN 26 mg/dL (7-18) H 03/18/21 06:30 Creatinine 1.06 mg/dL (0.70-1.30) 03/18/21 06:30 Est GFR (MDRD) Af Amer 91 mL/min (>60) 03/18/21 06:30 Est GFR (MDRD) Non-Af 75 mL/min (>60) 03/18/21 06:30 BUN/Creatinine Ratio 24.5 RATIO (10-20) H 03/18/21 06:30 Glucose 99 mg/dL (74-106) 03/18/21 06:30 Vancomycin Trough 12.4 ug/mL (5.0-15.0) 03/18/21 06:30 Microbiology: Microbiology 03/15/21 02:00 Blood Culture (Wb) - Anticubital Left Blood Culture - Preliminary No growth in 48 hours. 03/15/21 01:45 Blood Culture (Wb) - Right Hand Blood Culture - Preliminary No growth in 48 hours. 03/14/21 19:16 Blood Culture (Wb) - Anticubital Right Blood Culture - Preliminary No growth in 48 hours. 03/14/21 19:49 Blood Culture (Wb) - Anticubital Left Bacteria Detection (PCR ) - Preliminary Staphylococcus epidermidis 03/14/21 19:49 Blood Culture (Wb) - Anticubital Left Blood Culture - Preliminary Staphylococcus epidermidis 03/15/21 02:30 Urine, Clean Catch Legionella Antigen - Final 03/15/21 02:30 Urine, Clean Catch Streptococcus pneumoniae Antigen (M - Final 03/15/21 02:46 Mucosa - Nasopharyngeal Rapid RSV (DFA) - Final 03/14/21 20:10 Mucosa - Nose Influenza Types A,B Direct FA (RAMONITA) - Final 03/14/21 19:49 Nasal Secretion SARS-CoV-2 Antigen (Rapid) - Final Goal Trough: 15-20 mcg/mL Pharmacy Plan for Drug Dosing: VANCOMYCIN LEVEL RECEIVED Current Vancomycin Dose: 1250MG Q12H Number of Doses Received: 3 Vancomycin Level: 12.4 MG/DL Hours Since Last Dose: 12 Renal Function: SCR 1.06, CRCL 65 ML/MIN Renal Function Trend: STABLE Vancomycin Plan/Comments: INCREASE DOSE TO 1750MG Q12H. MORNING DOSE HAS ALREADY BEEN HUNG SO WILL START NEW DOSE TONIGHT AT 1830 AND GET A TROUGH PRIOR TO 4TH DOSE OF NEW REGIMEN. Pending Level: 03/20/21 @ 0600 Pharmacy Service will continue to monitor and adjust dosing as required.
[2021-03-18] MEDS: Furosemide 40 MG/4 ML Vial IV (10:05)
[2021-03-18] MEDS: Enoxaparin 30 MG/0.3 ML Syringe SC ×2 (10:07→20:27)
[2021-03-18] MEDS: Acetaminophen 650 MG Suppository RC ×2 (14:10→23:52)
--- NOTE | 2021-03-18 14:46 | NURSING ---
pt's called in and updated on condition. pt stated, i havent given up on him. so hes getting better you think?
[2021-03-18] MEDS: 0.9% Saline Lock 10 ML Syringe IV ×4 (14:59→20:32)
--- NOTE | 2021-03-18 16:33 | PCM.PN.HOSP ---
Subjective Subjective Patient continues to do more poorly clinically. He remains tachypneic and hypoxic. He remains on high 100%. He has intermittent bouts of agitation. Earlier he ripped off his BiPAP mask and desatted to 70%. At this time he is calm and remains on BiPAP continuous at 100%. Objective Data Objective Data Vital Signs: Vital Signs Temp Pulse Resp BP Pulse Ox 101.1 F H 103 H 43 H 105/81 H 97 03/18/21 15:54 03/18/21 16:27 03/18/21 16:27 03/18/21 15:54 03/18/21 16:27 Oxygen Flow Rate (L/min) 100 Oxygen Delivery Method Bi-pap Weight: 66.814 kg Body Mass Index (BMI) 23.3 Intake & Output: Intake and Output for Last 24 Hours 03/16/21 03/17/21 03/18/21 23:59 23:59 23:59 Intake Total 1385 / 1385 1477.50 / 1477.50 375 / 375 Output Total 1025 / 1025 1175 / 1175 1100 / 1100 Balance 360 / 360 302.50 / 302.50 -725 / -725 Lab / Micro Data Result Diagrams: 03/18/21 06:30 03/18/21 06:30 Labs: Laboratory Results - last 24 hr 03/15/21 17:02: SARS-CoV-2 IgA Ab Positive, SARS-CoV-2 IgM Ab Positive 03/18/21 06:30: Vancomycin Trough 12.4 03/18/21 06:30: WBC 9.3, RBC 5.04, Hgb 15.3, Hct 48.6, MCV 96.4 H, MCH 30.4, MCHC 31.5 L, RDW Std Deviation 47.3 H, RDW Coeff of Nito 13.3, Plt Count 281, MPV 10.5, Immature Gran % (Auto) 0.800, Neut % (Auto) 89.0 H, Lymph % (Auto) 8.3 L, [place] % (Auto) 1.7, Eos % (Auto) 0.0, Baso % (Auto) 0.2, Absolute Neuts (auto) 8.2 H, Absolute Lymphs (auto) 0.77 L, Nucleated RBC % 0 03/18/21 06:30: Sodium 148 H, Potassium 4.4, Chloride 114 H, Carbon Dioxide 26.0, Anion Gap 8, BUN 26 H, Creatinine 1.06, Estim Creat Clear Calc 64.37, Est GFR (MDRD) Af Amer 91, Est GFR (MDRD) Non-Af 75, BUN/Creatinine Ratio 24.5 H, Glucose 99, Calcium 8.8, Total Bilirubin 0.50, AST 30, ALT 42, Alkaline Phosphatase 81, Total Protein 7.4, Albumin 1.5 L, Globulin 5.9 H, Albumin/Globulin Ratio 0.3 L Micro: Microbiology 03/15/21 02:00 Blood Culture (Wb) - Anticubital Left Blood Culture - Preliminary No growth in 48 hours. 03/15/21 01:45 Blood Culture (Wb) - Right Hand Blood Culture - Preliminary No growth in 48 hours. 03/14/21 19:16 Blood Culture (Wb) - Anticubital Right Blood Culture - Preliminary No growth in 48 hours. 03/14/21 19:49 Blood Culture (Wb) - Anticubital Left Bacteria Detection (PCR) - Preliminary Staphylococcus epidermidis 03/14/21 19:49 Blood Culture (Wb) - Anticubital Left Blood Culture - Preliminary Staphylococcus epidermidis 03/15/21 02:30 Urine, Clean Catch Legionella Antigen - Final 03/15/21 02:30 Urine, Clean Catch Streptococcus pneumoniae Antigen (M - Final 03/15/21 02:46 Mucosa - Nasopharyngeal Rapid RSV (DFA) - Final 03/14/21 20:10 Mucosa - Nose Influenza Types A,B Direct FA (RAMONITA) - Final 03/14/21 19:49 Nasal Secretion SARS-CoV-2 Antigen (Rapid) - Final Physical Exam Const alert Constitutional Narrative: Upper middle-aged white male who appears much older than stated age lying in bed on BiPAP, fairly obtunded at this time, extremely tachypneic Exam Limitations: no limitations HEENT head/scalp atraumatic Head and Scalp: normocephalic Resp No clear to auscultation bilaterally Resp Narrative: Patient remains with bibasilar crackles, continued tachypnea noted despite noninvasive ventilation with accessory muscle use and paradoxical breathing Auscultation: crackles and rales; Negative for rhonchi or wheezes Cardio regular rate, regular rhythm, S1 normal heart sound, S2 normal heart sound, no murmurs, no rub, no gallops, no clicks and no JVD Cardio Narrative: Mild tachycardia with heart rates in the low 100 region GI normal to inspection, nondistended, normoactive bowel sounds, soft to palpation, non-tender and non-distended Extremity no clubbing, cyanosis or edema Extremity Narrative: Extremities are cool to touch, pedal pulses are 1+ Neuro Neuro Narrative: Patient is fairly obtunded on noninvasive ventilation Assessment & Plan Assessment/Plan (1) Acute hypoxemic respiratory failure due to COVID-19: (2) Elevated d-dimer: (3) Hypokalemia: (4) CONNOR (acute kidney injury): (5) Lactic acidosis: (6) Elevated troponin I level: PLAN: Acute hypoxic respiratory failure -Etiology is undetermined at this time although CAT scan appears consistent with viral pneumonia -COVID-19 infection is highly suspected at this time -he has been symptomatic for over 14 days so it is therefore possible that he is negative with rapid and PCR testing -IgG antibody is elevated/IgM still pending -This is consistent with recent Covid infection as patient has not been vaccinated -Lab work is very suspicious for Covid infection as well with elevated fibrinogen/CRP/ESR/D-dimer/LDH -Continue supplemental oxygen -Patient is currently on BiPAP at 100% with an SPO2 of 92 to 100% but is working very hard to maintain saturations -Titrate as able/needed -Flu testing is negative -Blood cultures are negative -RSV is negative -Mycoplasma IgG and IgM is pending -Strep pneumo and Legionella antigens are negative -Continue empiric antibiotics broadened to Vanco and Zosyn with fevers -Continue Decadron day 5 of 10 -Patient is out of the window for remdesivir -Echocardiogram showed EF of 55 to 60% with normal LV systolic function and grade 1 diastolic dysfunction -I-S and Acapella -Lasix 40 mg x 1 dose IV push again today -Monitor daily and attempt to maintain euvolemia -ID is following and recommends isolation until 03/23/2021 -Pulmonary following-appreciate input -Patient is in danger of requiring intubation and CODE STATUS is DNR CCA with intubation -May need to transition to BiPAP Metabolic encephalopathy -Suspect this is related to hypoxia and acute COVID-19 infection -Blood gas did not show any hypercapnia Hypernatremia/hyperchloremia -Patient appears to be getting somewhat dry -May need to hold off on diuresis -Repeat lab in a.m. -May need to start gentle hydration with D5 depending on lab in the next 24 hours Elevated D-dimer -CTA chest negative for PE -Continue prophylactic dose Lovenox Elevated troponin -Mild elevation -Troponin has normalized and suspect mild elevation due to hypoxia induced strain with demand ischemia -Echo performed and showed no wall motion abnormality Lactic acidosis -This is mild and improved -Suspect related to hypoxia CONNOR -Resolved -Serum creatinine remained stable at this time despite diuresis Hyperglycemia -Glucose is 99 this morning -We will hold SSI and Accu-Cheks -Hemoglobin A1c 5.7 DVT prophylaxis -Continue Lovenox 30 mg twice daily CODE STATUS -DNR CCA with intubation -Prognosis continues to be poor. This has continued to be relayed to the but she continues to be unrealistic. Patient was quite emphatic when he was alert and oriented that he would not want intubated or have CPR performed. Charges/Coding Visit Charges Inpatient E&M: 23162 Subs Hosp L2
[2021-03-19] VITALS (32 sets, daily range): BP systolic 94–134; BP diastolic 46–94; PULSE 42–113; RESP 12–51; TEMP 36.8–38.7; O2SAT 57–100
[2021-03-19] MEDS: LORazepam 2 MG/ML Syringe IV ×4 (04:09→13:46)
[2021-03-19] MEDS: 0.9% Saline Lock 10 ML Syringe IV ×9 (04:10→21:07)
[2021-03-19 05:25] LABS: Absolute Lymphocyte Count 0.75 X10^3/uL (0.83-4.51); Basophil# 0.03 X10^3/uL; Basophil% 0.3 % (0-1); Hematocrit 49.2 % (40-54); Hemoglobin 15.4 g/dL (13.0-16.5); Lymphocyte # 0.75 X10^3/ul (0.83-4.51); Lymphocyte % 7.5 % (19-41); Mean Corp Hgb Conc 31.3 g/dL (32-36); Mean Corpuscular Hgb 30.4 pg (27.0-32.0); Mean Platelet Vol. 10.8 fl (6.2-12.0); Monocyte# 0.15 X10^3/uL; Monocyte% 1.5 % (0-10); NRBC Flagged by Analyzer 0 % (0-5); Neutrophil # 8.95 X10^3/uL (2.7-7.7); Neutrophil % 89.9 % (47-70); Platelet Count 324 K/mm3 (150-450); RBC Distribution Width CV 13.5 % (11.6-14.6); RBC Distribution Width SD 48.2 fl (35.1-43.9); Red Blood Count 5.07 M/mm3 (4.6-6.2)
[2021-03-19] MEDS: Acetaminophen 650 MG Suppository RC ×2 (05:59→13:45)
[2021-03-19] MEDS: Metoprolol Tartrate 5 MG/5 ML Vial IV ×2 (06:07→11:29)
[2021-03-19 07:24] LABS: ALB/GLOB Ratio 0.2 RATIO (0.9-2.4); AST(SGOT) 34 U/L (15-37); Alanine Aminotransfer ALT/SGPT 46 U/L (16-61); Albumin, Serum 1.6 g/dL (3.2-5.0); Alkaline Phosphatase 107 U/L (45-117); Anion Gap 9 (5-15); BUN 38 mg/dL (7-18); BUN/Creat Ratio 26.4 RATIO (10-20); Calcium,Total 9.1 mg/dL (8.5-10.1); Chloride 118 mmol/L (98-107); Creatinine, Serum 1.44 mg/dL (0.70-1.30); EST Glomerular Filtration Rate 53 mL/min (>60); Est Glom Filt Rate - Afr Amer 64 mL/min (>60); Globulin 6.6 g/dL (2.2-4.2); Glucose 132 mg/dL (74-106); Potassium 3.8 mmol/L (3.5-5.1); Protein, Total 8.2 g/dL (6.4-8.2); Sodium Level 154 mmol/L (136-145)
--- NOTE | 2021-03-19 07:46 | PN.CC_ITS ---
Assessment & Plan Assessment/Plan (1) Respiratory failure: QUALIFIERS: Chronicity: acute Respiratory failure complication: hypoxia Qualified Code(s): J96.01 - Acute respiratory failure with hypoxia (2) Lactic acidosis: (3) Elevated d-dimer: PLAN: RECOMMENDATIONS: 1. Continue BiPAP. Wean supplemental oxygen as tolerated 2. Empiric antibiotics pending cultures and Decadron 3. Continued family meeting to discuss goals of care 4. Appears to be actively dying in my opinion 5. Consider transfer from the intensive care unit given refusal of intubation 6. Possible ethics consult early next week IMPRESSIONS: 1. Acute hypoxic respiratory failure Unclear etiology at this time. Patient was relatively belligerent when discussing COVID-19. Patient with progression over the last 24 hours. High clinical suspicion for COVID-19 as an etiology and antibodies are positive despite lack of immunization. Patient with very delayed presentation and poor insight making diagnosis more difficult to make. Patient currently on maximal therapy by BiPAP. Patient was very clear that he does not want to be intubated with 2 separate physicians. Patient appears to be actively dying, but family is refusing palliative measures at this time. We will continue to address with family, but treatment options are minimal given patient's reported wishes. Likely okay to leave the intensive care unit to limit stimulation. May need to have an ethics consult early next week if continues to be aggressive with patient actively suffering. 2. Acute kidney injury Resolved. Baseline creatinine is not available at this time. Patient was elevated at 1.77 on presentation and this has improved with supportive therapy. However, it is unclear if there is a chronic component. Patient appears to be relatively adverse to medical evaluation. 3. Hyperglycemia/hypernatremia/hyperchloremia Patient appears to have an element of insulin resistance. Patient was appropriately placed on sliding scale and Accu-Cheks. Hemoglobin A1c is elevated slightly. Hypernatremia and hyperchloremia likely secondary to decreased p.o. intake for days. Agree with 1 L D5W 4. Poor historian/nonvaccinated status Complicates care, management, recovery and prognosis. Will attempt to obtain further information from family members if possible. Subjective Subjective Patient continues to have significant difficulty overnight. Patient has been given Ativan with some control of symptomatology. Oxygenation remains marginal on BiPAP therapy. Patient is not very conversational and has increased agitation associated with care. Objective Data Objective Data Vital Signs: Vital Signs Temp Pulse Resp BP Pulse Ox 38.5 C H 88 38 H 114/84 H 89 03/19/21 07:00 03/19/21 07:00 03/19/21 07:00 03/19/21 07:00 03/19/21 07:00 Oxygen Flow Rate (L/min) 100 Oxygen Delivery Method Bi-pap Weight: 63.684 kg Body Mass Index (BMI) 23.3 Intake & Output: Intake and Output for Last 24 Hours 03/17/21 03/18/21 03/19/21 23:59 23:59 23:59 Intake Total 1477.50 / 1477.50 1432.5 / 1432.5 50 / 50 Output Total 1175 / 1175 1550 / 1550 450 / 450 Balance 302.50 / 302.50 -117.5 / -117.5 -400 / -400 Lab / Micro Data Result Diagrams: 03/19/21 05:10 03/19/21 05:10 Labs: Laboratory Results - last 24 hr 03/15/21 17:02: SARS-CoV-2 IgA Ab Positive, SARS-CoV-2 IgM Ab Positive 03/19/21 05:10: WBC 10.0, RBC 5.07, Hgb 15.4, Hct 49.2, MCV 97.0 H, MCH 30.4, MCHC 31.3 L, RDW Std Deviation 48.2 H, RDW Coeff of Nito 13.5, Plt Count 324, MPV 10.8, Immature Gran % (Auto) 0.800, Neut % (Auto) 89.9 H, Lymph % (Auto) 7.5 L, [place] % (Auto) 1.5, Eos % (Auto) 0.0, Baso % (Auto) 0.3, Absolute Neuts (auto) 9.0 H, Absolute Lymphs (auto) 0.75 L, Nucleated RBC % 0 03/19/21 05:10: Sodium 154 H, Potassium 3.8, Chloride 118 H, Carbon Dioxide 27.0, Anion Gap 9, BUN 38 H, Creatinine 1.44 H, Estim Creat Clear Calc 47.30, Est GFR (MDRD) Af Amer 64, Est GFR (MDRD) Non-Af 53 L, BUN/Creatinine Ratio 26.4 H, Glucose 132 H, Calcium 9.1, Total Bilirubin 0.70, AST 34, ALT 46, Alkaline Phosphatase 107, Total Protein 8.2, Albumin 1.6 L, Globulin 6.6 H, Albumin/Globulin Ratio 0.2 L Micro: Microbiology 03/15/21 02:00 Blood Culture (Wb) - Anticubital Left Blood Culture - Preliminary No growth in 48 hours. 03/15/21 01:45 Blood Culture (Wb) - Right Hand Blood Culture - Preliminary No growth in 48 hours. 03/14/21 19:16 Blood Culture (Wb) - Anticubital Right Blood Culture - Preliminary No growth in 48 hours. 03/14/21 19:49 Blood Culture (Wb) - Anticubital Left Bacteria Detection (PCR) - Preliminary Staphylococcus epidermidis 03/14/21 19:49 Blood Culture (Wb) - Anticubital Left Blood Culture - Preliminary Staphylococcus epidermidis 03/15/21 02:30 Urine, Clean Catch Legionella Antigen - Final 03/15/21 02:30 Urine, Clean Catch Streptococcus pneumoniae Antigen (M - Final 03/15/21 02:46 Mucosa - Nasopharyngeal Rapid RSV (DFA) - Final 03/14/21 20:10 Mucosa - Nose Influenza Types A,B Direct FA (RAMONITA) - Final 03/14/21 19:49 Nasal Secretion SARS-CoV-2 Antigen (Rapid) - Final Physical Exam Const Constitutional Narrative: On BiPAP. Opens eyes to voice only. Not really interacting. General Appearance: disheveled, lethargic, ill appearing and appears older than stated age Exam Limitations: no limitations HEENT head/scalp atraumatic, moist oral mucous membranes and oropharynx normal Head and Scalp: normocephalic Eyes PERRL, EOMs intact bilaterally and conjunctivae normal Eyes Narrative: No scleral icterus Neck No nuchal rigidity, no lymphadenopathy, supple and no JVD General: trachea midline Chest inspection of chest normal Chest: abnormal inspection of the chest increased A-P diameter; Negative for crepitus Resp normal respiratory effort, no retractions, no use of accessory muscles and No clear to auscultation bilaterally Auscultation: rales and diminished lung sounds; Negative for rhonchi or wheezes Cardio regular rhythm, S1 normal heart sound, S2 normal heart sound, no murmurs, no rub, no gallops, no clicks and no JVD GI normal to inspection, nondistended, normoactive bowel sounds, soft to palpation, non-tender and non-distended Extremity no clubbing, cyanosis or edema Peripheral Pulses: Yes pulses 2+ throughout Skin no rashes or lesions noted, no wounds, skin turgor normal, no jaundice, no petechiae and no mottling Neuro oriented x3, moves all extremities, no focal motor deficits and no sensory deficits noted Neuro Narrative: Generalized weakness but no focal deficits Sensorium / Orientation: awake and alert Speech: speech normal Psych affect normal Charges/Coding Visit Charges Inpatient E&M: 31210 Subs Hosp L3
[2021-03-19] MEDS: Enoxaparin 30 MG/0.3 ML Syringe SC (08:54)
[2021-03-19] MEDS: dexAMETHasone 10 MG/ML Vial 6 MG IV (11:28)
--- NOTE | 2021-03-19 16:01 | PN.HOSP_ITS ---
Subjective Subjective Patient continues to do poorly. He remains on 100% oxygen with oxygen saturations in the low 90s if he is on his right side and he drops into the 70s on the left side when he is turned. His respiratory rate remains in the mid 30s to 50s. He appears uncomfortable. There is no appropriate interaction but he is agitated at times. He is still having fevers and infectious work-up at this time is negative. Objective Data Objective Data Vital Signs: Vital Signs Temp Pulse Resp BP Pulse Ox 99.4 F H 80 33 H 107/76 100 03/19/21 16:00 03/19/21 16:00 03/19/21 16:00 03/19/21 16:00 03/19/21 16:00 Oxygen Flow Rate (L/min) 100 Oxygen Delivery Method Bi-pap Weight: 63.684 kg Body Mass Index (BMI) 23.3 Intake & Output: Intake and Output for Last 24 Hours 03/17/21 03/18/21 03/19/21 23:59 23:59 23:59 Intake Total 1477.50 / 1477.50 1432.5 / 1432.5 635 / 635 Output Total 1175 / 1175 1550 / 1550 625 / 625 Balance 302.50 / 302.50 -117.5 / -117.5 Lab / Micro Data Result Diagrams: 03/19/21 05:10 03/19/21 05:10 Labs: Laboratory Results - last 24 hr 03/19/21 05:10: WBC 10.0, RBC 5.07, Hgb 15.4, Hct 49.2, MCV 97.0 H, MCH 30.4, MCHC 31.3 L, RDW Std Deviation 48.2 H, RDW Coeff of Nito 13.5, Plt Count 324, MPV 10.8, Immature Gran % (Auto) 0.800, Neut % (Auto) 89.9 H, Lymph % (Auto) 7.5 L, [place] % (Auto) 1.5, Eos % (Auto) 0.0, Baso % (Auto) 0.3, Absolute Neuts (auto) 9.0 H, Absolute Lymphs (auto) 0.75 L, Nucleated RBC % 0 03/19/21 05:10: Sodium 154 H, Potassium 3.8, Chloride 118 H, Carbon Dioxide 27.0, Anion Gap 9, BUN 38 H, Creatinine 1.44 H, Estim Creat Clear Calc 47.30, Est GFR (MDRD) Af Amer 64, Est GFR (MDRD) Non-Af 53 L, BUN/Creatinine Ratio 26.4 H, Glucose 132 H, Calcium 9.1, Total Bilirubin 0.70, AST 34, ALT 46, Alkaline Phosphatase 107, Total Protein 8.2, Albumin 1.6 L, Globulin 6.6 H, Albumin/Globulin Ratio 0.2 L Micro: Microbiology 03/15/21 02:00 Blood Culture (Wb) - Anticubital Left Blood Culture - Preliminary No growth in 48 hours. 03/15/21 01:45 Blood Culture (Wb) - Right Hand Blood Culture - Preliminary No growth in 48 hours. 03/14/21 19:16 Blood Culture (Wb) - Anticubital Right Blood Culture - Preliminary No growth in 48 hours. 03/14/21 19:49 Blood Culture (Wb) - Anticubital Left Bacteria Detection (PCR) - Preliminary Staphylococcus epidermidis 03/14/21 19:49 Blood Culture (Wb) - Anticubital Left Blood Culture - Preliminary Staphylococcus epidermidis 03/15/21 02:30 Urine, Clean Catch Legionella Antigen - Final 03/15/21 02:30 Urine, Clean Catch Streptococcus pneumoniae Antigen (M - Final 03/15/21 02:46 Mucosa - Nasopharyngeal Rapid RSV (DFA) - Final 03/14/21 20:10 Mucosa - Nose Influenza Types A,B Direct FA (RAMONITA) - Final 03/14/21 19:49 Nasal Secretion SARS-CoV-2 Antigen (Rapid) - Final Physical Exam Const alert Constitutional Narrative: Upper middle-aged white male who appears much older than stated age lying in bed on BiPAP, remains fairly obtunded at this time with intermittent agitation but no purposeful interaction, extremely tachypneic Exam Limitations: no limitations HEENT head/scalp atraumatic Head and Scalp: normocephalic Eyes PERRL and conjunctivae normal Resp No clear to auscultation bilaterally Resp Narrative: Patient remains with bibasilar crackles, continued tachypnea noted despite noninvasive ventilation with accessory muscle use and paradoxical breathing Auscultation: crackles and rales; Negative for rhonchi or wheezes Cardio regular rate, regular rhythm, S1 normal heart sound, S2 normal heart sound, no murmurs, no rub, no gallops, no clicks and no JVD GI normal to inspection, nondistended, normoactive bowel sounds, soft to palpation, non-tender and non-distended Extremity no clubbing, cyanosis or edema Extremity Narrative: pedal pulses are 1+ Neuro Neuro Narrative: Patient is fairly obtunded on noninvasive ventilation, does periodically move extremities spontaneously Assessment & Plan Assessment/Plan (1) Acute hypoxemic respiratory failure due to COVID-19: (2) Elevated d-dimer: (3) Hypokalemia: (4) CONNOR (acute kidney injury): (5) Lactic acidosis: (6) Elevated troponin I level: PLAN: Acute hypoxic respiratory failure -Etiology is undetermined at this time although CAT scan appears consistent with viral pneumonia -COVID-19 infection is highly suspected at this time -he has been symptomatic for over 14 days so it is therefore possible that he is negative with rapid and PCR testing -IgG antibody is elevated/IgM still pending -This is consistent with recent Covid infection as patient has not been vaccinated -Lab work is very suspicious for Covid infection as well with elevated fibrinogen/CRP/ESR/D-dimer/LDH -Continue supplemental oxygen -Patient is remains on BiPAP at 100% with an SPO2 of 85 to 100% but is working very hard to maintain saturations with respiratory rates in the mid 30s to 50s -Titrate as able/needed -Flu testing is negative -Blood cultures are negative -RSV is negative -Mycoplasma IgG and IgM is pending -Strep pneumo and Legionella antigens are negative -Continue empiric antibiotics broadened to Vanco and Zosyn with fevers -Continue Decadron day 6 of 10 -Patient is out of the window for remdesivir -Echocardiogram showed EF of 55 to 60% with normal LV systolic function and grade 1 diastolic dysfunction -I-S and Acapella -Lasix is on hold secondary to severe hyponatremia with a sodium of 154 -ID is following and recommends isolation until 03/23/2021 -Pulmonary following-appreciate input Metabolic encephalopathy -Suspect this is related to hypoxia and acute COVID-19 infection/fevers Hypernatremia/hyperchloremia -Diuresis held yesterday and despite this worsening sodium -Start D5W at 50 cc/h -Repeat lab in a.m. Elevated D-dimer -CTA chest negative for PE -Continue prophylactic dose Lovenox Elevated troponin -Mild elevation -Troponin has normalized and suspect mild elevation due to hypoxia induced strain with demand ischemia -Echo performed and showed no wall motion abnormality Lactic acidosis -Suspect related to hypoxia CONNOR -Resolved -Serum creatinine remained stable at this time despite diuresis Hyperglycemia -Glucose is 99 this morning -We will hold SSI and Accu-Cheks -Hemoglobin A1c 5.7 DVT prophylaxis -Continue Lovenox 30 mg twice daily CODE STATUS -DNR CCA with intubation -Prognosis continues to be poor. Discussed with and his brother today over the phone. We discussed that he has Covid pneumonia with persistent fever despite no source of infection and on antibiotics as well as the fact that he continues to require 100% FiO2 on noninvasive ventilation. I did express to them that if he wanted intubation we probably would have intubated him a day and a half ago with the severity of his respiratory distress. He continues to have severe tachypnea with markedly labored breathing and paradoxical breathing. I did indicate that this is not sustainable long-term and that they may want to consider terminal weaning from noninvasive ventilation and comfort care measure s. The brother states he is going to discuss things with the patient's and get back to us later. Charges/Coding Visit Charges Inpatient E&M: 57442 Subs Hosp L2
--- NOTE | 2021-03-19 16:52 | NURSING ---
1630- pt's and brother called in after discussing patient wishes and speaking with Dr. Mcintyre. Family wishing to visit with patient and then withdraw care and let patient become comfort care. Dr. Mcintyre notified, new orders be written.
--- NOTE | 2021-03-19 17:58 | NURSING ---
pt's family visiting at bedside.
[2021-03-19] MEDS: HYDROmorphone 1 MG/ML Syringe IV ×7 (18:38→22:12)
[2021-03-19] MEDS: Midazolam 2 MG/2 ML Syringe 1 MG IV (18:38)
--- NOTE | 2021-03-19 21:09 | PCM.HOSP.N ---
Hospitalist Note Family called into ICU and have elected to withdrawal care based on our earlier conversation. They are on their onto the hospital to do so. DNRCC order placed and comfort meds ordered. Life expectancy is most likely hours given current clinical condition.
--- NOTE | 2021-03-19 21:42 | NURSING ---
Pt assessed, resting in bed with eyes closed, appears to be comfortable. Respirations 27, agonal, medicated per MAY. SpO2 30% with 2L O2 NC on for comfort. S1S2 audible, pulse thready, HR 110s. This nurse remains at bedside to accompany pt, will cont to closely monitor.
[2021-03-20] VITALS: PULSE 107; RESP 20; TEMP 36.2; O2SAT 50
[2021-03-20] MEDS: HYDROmorphone 1 MG/ML Syringe IV (01:59)
--- NOTE | 2021-03-20 04:14 | NURSING ---
0405: RN at bedside, pt becomes apneic and bradycardic on monitor. No audible heart tones, no pulse palpable, PEA. Verified by second RN, Jeanine Ritter.
--- NOTE | 2021-03-20 04:24 | EXP.PCM_ITS ---
Preliminary Cause of Preliminary Cause of Preliminary Cause of : Acute hypoxemic respiratory failure secondary to COVID-19 pneumonia. Date of Admission: 03/14/21 Principle Diagnosis Problem List: Active and Suspected Problems (Updated 03/15/21 @ 16:[address] Concha Mcintyre, DO) Elevated troponin I level (Acute) Lactic acidosis (Acute) CONNOR (acute kidney injury) (Acute) Hypokalemia (Acute) Elevated d-dimer (Acute) Respiratory failure (Acute) COVID-19 (Acute) Acute hypoxemic respiratory failure due to COVID-19 (Acute) Hospital Course Patient who was unvaccinated against COVID-19 was brought to the emergency department by squad for COVID-like symptoms at the prompting of the patient's . Patient was on nonrebreather mask/high flow oxygen but was eventually transitioned to noninvasive pressure ventilation. Chest x-ray and chest CTA was remarkable for bilateral opacities. His procalcitonin was only mildly elevated at 0.40 on presentation. Rapid COVID antigen and COVID PCR was negative. Influenza and RSV was negative. Patient was started on broad-spectrum antibiotics. Strep pneumoniae urine antigen and Legionella urine antigen was negative. Preliminary blood culture x2 obtained on 03/15/2021 was negative. One of two aerobic bottle of blood culture obtained on 03/14/2021 was positive for Staphylococcus epidermis, likely contaminants. Mycoplasma IgG was positive but IgM was negative. He was initially admitted to the progressive care unit but transferred to the intensive care unit because of worsening respiratory status. Echocardiogram showed normal ejection fraction. Patient was seen by both income tax manager and ID specialist. Initially patient was DNR CCA with intubation. But he elected to be DNR CCA without intubation. Family was initially not in agreement with patient advanced directive of DNR CCA without intubation. However patient wishes was explained to family. The patient received Decadron since he was outside the window of remdesivir. Infectious disease was consulted. A COVID IgG and IgM was ordered. His COVID IgG returned positive. Also his COVID IgM returned positive. His potassium was low and that was supplemented. His troponin was mildly elevated and that was trended. His lactic acid was elevated but that trended down. His blood glucose was high and he received correction scale insulin. His A1c was only mildly elevated at 5.7. Also on presentation patient had elevated creatinine. There was no baseline to correct it. However with IV fluid his creatinine improved. Patient received intermittent Lasix with intent to improve his respiratory status. With Lasix his sodium increased and his creatinine worsened again. The patient was given a dextrose infusion to control his hypernatremia. On 03/20/2021 nurses reported that patient . Time of was reported as 404 With a very grim prognosis family elected to withdraw care. The patient was made DNR CC comfort care. Patient was placed on nasal cannula oxygen and received Dilaudid and Ativan for comfort care. Date of : 03/20/2021. Time of : 404 Immediate cause of (final disease of condition resulting in ): Acute respiratory failure. Duration: Days/month/years: Days Listed conditions leading to cause of (due to or as a consequence of) : COVID-19 Day/month/years: Weeks Listed other significant conditions contributing to but not resulting in the underlying cause of : Acute kidney injury Did tobacco contribute to : Unknown. Patient was a former smoker but previous x-rays are not available to see the patient had any damage to her lungs from smoking. Patient was not seen or examined on the day of . Code: Non billable
== END 2021-03-20 06:00 | DRG 137 ==
LOC: ED 22:03 → PCU 23:17 → ICU 03-16 17:09
PROVIDERS: Internal Medicine Critical Care Medicine; Admitting Provider Hospitalist; Emergency Provider Emergency Medicine; Visit Provider Internal Medicine
DX: U07.1 COVID-19 (principal); J96.01 Acute respiratory failure with hypoxia; J12.82 Pneumonia due to coronavirus disease 2019; G93.41 Metabolic encephalopathy; I50.30 Unspecified diastolic (congestive) heart failure; N17.9 Acute kidney failure, unspecified; E87.6 Hypokalemia; E87.0 Hyperosmolality and hypernatremia; E87.2 Acidosis; E87.8 Other disorders of electrolyte and fluid balance, not elsewhere classified; B95.7 Other staphylococcus as the cause of diseases classified elsewhere; Z87.891 Personal history of nicotine dependence; Z79.01 Long term (current) use of anticoagulants; R73.9 Hyperglycemia, unspecified; Z28.3 Underimmunization status; Z66 Do not resuscitate
CPT/HCPCS: 36415; 36600; 71045; 71275; 80048; 80053; 80202; 82550; 82570; 82803; 83036; 83605; 83615; 83735; 83880; 83935; 84100; 84145; 84300; 84484; 85025; 85379; 85384; 85652; 86140; 86738; 86769; 87040; 87149; 87426; 87449; 87635; 87804; 87807; 93005; 93306; 94003; 94660; 99284; J7030; J7040; J7050; Q9967; A4216; J1940; U0003; U0005